=== PATIENT | male | born 1980 | race Caucasian/White ===

== ENCOUNTER 2018-08-15 10:23 | Inpatient (IN) ==
[2018-08-15] MEDS ORDERED: 0.9 % Sodium Chloride 1,000 ML IVC ONE (10:52)
--- NOTE | 2018-08-15 11:00 | Emergency Department Note ---
Disposition Clinical Impression: Hyperammonemia, Fever of unknown origin, Developmental delay, moderate, Valproic acid toxicity Disposition: Admitted As Inpatient Condition: Undetermined Time of Disposition: 12:49 Fever HPI - General Chief Complaint: ED Fever Stated Complaint: decreased intake,"fevers" Time Seen by Provider: 08/15/18 10:31 Source: other Mode of arrival: EMS Limitations: altered mental status Nursing Notes Reviewed: Yes Vital Signs Reviewed: Yes - History of Present Illness HPI Narrative: 37-year-old male with history of developmental delay, cerebral palsy on numerous psychiatric medications arrives to the emergency Department roughly 3 days of fever with a MAXIMUM TEMPERATURE of 102 degrees Fahrenheit. The fever broke last night. Being treated at home by caregivers. The patient recently had an increase in medications to include increasing valproic acid, Topamax, Haldol. The patient has had no rigidity but has been altered from his baseline. The patient does have a history of elevated ammonia in the past and has had to be admitted to the hospital secondary to elevated ammonia associated with the valproic acid level. The patient is afebrile this time no signs of tachycardia, hypotension. He is altered from his baseline. Caregiver states that he has had numerous falls. One last week where he did not strike his head. The patient is in no acute distress at this time is following intermittent commands. - Related Data Home Medications Medication Instructions Recorded Confirmed Bromocriptine [Parlodel] 2.5 mg PO DAILY 11/12/17 08/15/18 Cimetidine 200 mg PO BID 11/12/17 08/15/18 Clomipramine HCl 50 mg PO HS 11/12/17 08/15/18 Desitin (Zinc Oxide) [Desitin 1 appl TP BID 11/12/17 08/15/18 Diaper Rash 40 % Paste] Docusate Sodium [Dok] 100 mg PO BID 11/12/17 08/15/18 Haloperidol 10 mg PO BID 11/12/17 08/15/18 Hydrocortisone Valerate 1 appl TP BID 11/12/17 08/15/18 Lurasidone HCl [Latuda] 80 mg PO QPM 11/12/17 08/15/18 Zolpidem [Ambien] 5 mg PO HS 11/12/17 08/15/18 diazePAM [Valium] 5 mg PO ONCE 11/12/17 08/15/18 Lactulose [Enulose] 20 gm PO TID 05/02/18 08/15/18 Lurasidone [Latuda] 40 mg PO QAM 05/02/18 08/15/18 Acetaminophen [Non-Aspirin] 650 mg PO Q4H PRN 08/15/18 08/15/18 Benztropine [Cogentin] 1 mg PO BID 08/15/18 08/15/18 Diazepam [Diastat Acudial] 1 each RC ONCE PRN 08/15/18 08/15/18 Haloperidol Decanoate 1.5 ml IM Q2W 08/15/18 08/15/18 Ibuprofen [Motrin Ib] 400 mg PO Q4H PRN 08/15/18 08/15/18 Ketoconazole Shampoo [Nizoral 1 appl TP Q72H PRN 08/15/18 08/15/18 Shampoo] LORazepam [Ativan] 1 mg PO TID 08/15/18 08/15/18 Loperamide [Imodium] 2 mg PO AD PRN 08/15/18 08/15/18 Magnesium Hydroxide [Milk of 30 ml PO DAILY PRN 08/15/18 08/15/18 Magnesia] Medroxyprogesterone Acetate 150 mg IM Q60D 08/15/18 08/15/18 Sertraline [Zoloft] 50 mg PO HS 08/15/18 08/15/18 Sertraline [Zoloft] 100 mg PO QAM 08/15/18 08/15/18 Topiramate [Topamax] 100 mg PO QAM 08/15/18 08/15/18 Topiramate [Topamax] 200 mg PO HS 08/15/18 08/15/18 levOCARNitine [Levocarnitine] 330 mg PO TID 08/15/18 08/15/18 Previous Rx's Medication Instructions Recorded DiphenhydraMINE [Benadryl] 25 mg PO Q6HR PRN #20 capsule 11/12/17 LevETIRAcetam [Keppra] 500 mg PO BID #90 tablet 05/03/18 Allergies Allergy/AdvReac Type Severity Reaction Status Date / Time Penicillins [PCN] Allergy Hives Verified 05/12/18 19:19 All systems ED: reviewed and negative except as stated. Constitutional: Reports: fever, weakness Eyes: Denies: vision change ENT ED: Denies: dysphagia Cardiovascular: Denies: chest pain Respiratory: Denies: cough, dyspnea, sputum production Gastrointestinal: Denies: abdominal pain, nausea, vomiting Genitourinary: Denies: urgency, dysuria Integumentary: Denies: rash Neurological: Reports: confusion. Denies: headache Fever PMH - Past Medical History Medical history: Reports: GERD, hypertension, seizures, other Surgical history: Reports: no surgical history, other Psychiatric history: Reports: anxiety, depression, schizophrenia, other - Social History Smoking Status: Never smoker Alcohol use: Reports: none Drug use: Reports: none Physical Exam - General Limitations: altered mental status General appearance: in no apparent distress, other (somnolent) - Head Head exam: atraumatic, normocephalic, normal inspection - Eye Eye exam: Present: normal appearance, PERRL, EOMI - ENT ENT exam: normal exam, normal oropharynx, mucous membranes moist - Neck Neck exam: Present: normal inspection, full ROM, trachea midline. Absent: tenderness, meningismus - Chest Chest inspection: Present: normal inspection, symmetric chest wall rise - Respiratory Respiratory exam: Present: normal lung sounds bilaterally - Cardiovascular Cardiovascular exam: Present: regular rate, normal rhythm, normal heart sounds - Abdominal Exam Abdominal exam: Present: soft, Non-Tender. Absent: tenderness, distention, guarding, rebound, rigidity - Extremities Exam Extremities exam: Present: normal inspection, full ROM, normal capillary refill. Absent: tenderness, pedal edema - Expanded Neurological Exam Motor strength - LUE: 4/5 Motor strength - RUE: 4/5 Motor strength - LLE: 4/5 Motor strength - RLE: 4/5 Coma Scale Eye Opening: Spontaneous Coma Scale Motor Response: Obeys Commands Coma Scale Verbal Response: None Coma Scale Total: 11 - Skin Skin exam: Present: warm, dry, intact, normal color Course Vital Signs Temperature 97.9 F 08/15/18 10:25 Pulse Rate 93 08/15/18 10:25 Respiratory Rate 16 08/15/18 10:25 Blood Pressure 122/83 08/15/18 10:25 O2 Sat by Pulse Oximetry 98 08/15/18 10:25 Temperature 97.9 F 08/15/18 10:25 Pulse Rate 83 08/15/18 12:39 Respiratory Rate 20 08/15/18 12:39 Blood Pressure 112/70 08/15/18 12:39 O2 Sat by Pulse Oximetry 100 08/15/18 12:39 Oxygen Delivery Oxygen Delivery Room Air Fever - MDM Narrative Medical decision making narrative: Patient's workup in the emergency department demonstrates findings consistent with a hyperammonemia and no other acute process. Imaging and lab work is otherwise unremarkable. The patient will be admitted to the hospital. The patient is now awake and answering questions appropriately. Patient was accepted to the hospital by Dr. Moran. - Lab Data Lab results reviewed: Yes I reviewed the patient's lab results. Result diagrams: 08/15/18 11:08 08/15/18 11:08 Lab Results 08/15/18 08/15/18 08/15/18 Range/Units 11:08 11:08 11:08 WBC 4.9 (4.3-11.1) K/mcL RBC 4.25 (4.19-5.50) M/mcL Hgb 12.8 L (12.9-16.9) g/dL Hct 39.2 (37.5-50.1) % MCV 92.2 (83.0-100.0) fL MCH 30.1 (28.0-33.3) pg MCHC 32.7 (31.6-35.5) g/dL RDW 14.3 (11.5-14.5) % Plt Count 156 (140-400) K/mcL MPV 12.0 (9.4-12.4) fL Immature Gran % 0.8 (0-4) % Seg Neutrophils % 44.4 % Lymphocytes % 39.9 % Monocytes % 12.3 % Eosinophils % 2.2 % Basophils % 0.4 % Neutrophils # 2.2 (1.6-8.9) K/mcL Lymphocytes # 2.0 (0.6-4.6) K/mcL Monocytes # 0.6 (0.0-1.3) K/mcL Eosinophils # 0.1 (0.0-0.6) K/mcL Basophils # 0.0 (0.0-0.2) K/mcL Sodium 138 (136-145) mEq/L Potassium 4.0 (3.5-5.1) mEq/L Chloride 110 H (98-107) mEq/L Carbon Dioxide 24 (23-29) mEq/L BUN 10 (6-20) mg/dL Creatinine 0.86 (0.70-1.30) mg/dL Est GFR ( Amer) > 60 (> 60) Est GFR (Non-Af Amer) > 60 (> 60) BUN/Creatinine Ratio 12 (6-26) Glucose 90 (70-105) mg/dL Calculated Osmolality 285 (280-300) Lactic Acid 1.1 (0.5-2.2) mmol/L Calcium 9.4 (8.6-10.3) mg/dL Total Bilirubin 0.5 (0.3-1.0) mg/dL Direct Bilirubin 0.0 (0.0-0.2) mg/dL Indirect Bilirubin 0.5 (0.0-1.2) mg/dL AST 12 L (13-39) Units/L ALT 10 (7-52) Units/L Alkaline Phosphatase 46 (34-104) Units/L Ammonia (16-53) mcmol/L Serum Total Protein 7.2 (6.4-8.9) g/dL Albumin 4.0 (3.5-5.7) g/dL Globulin 3.2 (2.4-3.5) g/dL Albumin/Globulin Ratio 1.3 (1.1-2.2) Lipase 24 (11-82) Units/L Urine Color (Yellow) Urine Clarity (Clear) Urine pH (5.0-8.0) pH Units Ur Specific [place] (1.010-1.025) Urine Protein (Neg-Trace) mg/dL Urine Glucose (UA) (Normal) mg/dL Urine Ketones (Negative) mg/dL Urine Blood (Negative) Urine Nitrite (Negative) Urine Bilirubin (Negative) Urine Urobilinogen (Normal) mg/dL Ur Leukocyte Esterase (Negative) Ur Culture Indicated? (NO) Salicylates < 2.5 L (15.0-30.0) mg/dL Urine Opiates Screen (Ormkno=275) ng/mL Acetaminophen < 10 L (10-20) mcg/mL Ur Barbiturates Screen (Zokqjt=379) ng/mL Valproic Acid 90 (50-100) mcg/mL Ur Phencyclidine Scrn (Cutoff=25) ng/mL Ur Amphetamines Screen ([place]=5911) ng/mL U Benzodiazepines Scrn (Aocwwb=602) ng/mL Urine Cocaine Screen (Cutoff= 300) ng/mL U Marijuana (THC) Screen (Cutoff = 50) ng/mL Ur Drug Screen Interp Ethyl Alcohol < 10 (Less than 10) mg/dL 08/15/18 08/15/18 08/15/18 Range/Units 11:08 11:45 11:45 WBC (4.3-11.1) K/mcL RBC (4.19-5.50) M/mcL Hgb (12.9-16.9) g/dL Hct (37.5-50.1) % MCV (83.0-100.0) fL MCH (28.0-33.3) pg MCHC (31.6-35.5) g/dL RDW (11.5-14.5) % Plt Count (140-400) K/mcL MPV (9.4-12.4) fL Immature Gran % (0-4) % Seg Neutrophils % % Lymphocytes % % Monocytes % % Eosinophils % % Basophils % % Neutrophils # (1.6-8.9) K/mcL Lymphocytes # (0.6-4.6) K/mcL Monocytes # (0.0-1.3) K/mcL Eosinophils # (0.0-0.6) K/mcL Basophils # (0.0-0.2) K/mcL Sodium (136-145) mEq/L Potassium (3.5-5.1) mEq/L Chloride (98-107) mEq/L Carbon Dioxide (23-29) mEq/L BUN (6-20) mg/dL Creatinine (0.70-1.30) mg/dL Est GFR ( Amer) (> 60) Est GFR (Non-Af Amer) (> 60) BUN/Creatinine Ratio (6-26) Glucose (70-105) mg/dL Calculated Osmolality (280-300) Lactic Acid (0.5-2.2) mmol/L Calcium (8.6-10.3) mg/dL Total Bilirubin (0.3-1.0) mg/dL Direct Bilirubin (0.0-0.2) mg/dL Indirect Bilirubin (0.0-1.2) mg/dL AST (13-39) Units/L ALT (7-52) Units/L Alkaline Phosphatase (34-104) Units/L Ammonia 77 H (16-53) mcmol/L Serum Total Protein (6.4-8.9) g/dL Albumin (3.5-5.7) g/dL Globulin (2.4-3.5) g/dL Albumin/Globulin Ratio (1.1-2.2) Lipase (11-82) Units/L Urine Color Dark Yellow (Yellow) Urine Clarity Clear (Clear) Urine pH 6.0 (5.0-8.0) pH Units Ur Specific [place] 1.025 (1.010-1.025) Urine Protein Negative (Neg-Trace) mg/dL Urine Glucose (UA) Normal (Normal) mg/dL Urine Ketones Negative (Negative) mg/dL Urine Blood Negative (Negative) Urine Nitrite Negative (Negative) Urine Bilirubin Negative (Negative) Urine Urobilinogen Normal (Normal) mg/dL Ur Leukocyte Esterase Negative (Negative) Ur Culture Indicated? NO (NO) Salicylates (15.0-30.0) mg/dL Urine Opiates Screen Negative (Gpbgng=779) ng/mL Acetaminophen (10-20) mcg/mL Ur Barbiturates Screen Negative (Vwbkfn=188) ng/mL Valproic Acid (50-100) mcg/mL Ur Phencyclidine Scrn Negative (Cutoff=25) ng/mL Ur Amphetamines Screen Negative (Uosmzd=2814) ng/mL U Benzodiazepines Scrn Positive H (Hvuzhb=670) ng/mL Urine Cocaine Screen Negative (Cutoff= 300) ng/mL U Marijuana (THC) Screen Negative (Cutoff = 50) ng/mL Ur Drug Screen Interp See Below Ethyl Alcohol (Less than 10) mg/dL - Radiology Data Radiology results reviewed: Yes I reviewed the patient's radiology results. Abdomen/Pelvis CT 08/15/18 10:52 IMPRESSION: No CT evidence of an acute intra-abdominal or intrapelvic process. D/ / Mauro Perez / Muaro Perez Interpreting Provider: Mauro Perez Cervical Spine CT 08/15/18 10:52 IMPRESSION: No acute abnormality of the cervical spine. D/ / Mauro Perez / Mauro Perez Interpreting Provider: Mauro Perez Chest X-Ray 08/15/18 10:52 IMPRESSION: Suboptimal inspiration. Mild bibasilar atelectasis. D/ / Matheus Gu MD / Matheus Gu MD Interpreting Provider: Matheus Gu MD Head CT 08/15/18 10:52 IMPRESSION: 1.No acute intracranial abnormality. D/ / Dmitriy Bertrand MD / Dmitriy Bertrand MD Interpreting Provider: Dmitriy Bertrand MD - EKG Data EKG attestation: Yes I reviewed and interpreted this EKG. EKG results narrative: Heart rate 85 beats for minute. Normal sinus rhythm. No ST elevation or ST depression noted. No acute changes noted when compared to previous EKG from 05/12/2018. Attestation Statement - Attestation Attestation: I, Zack Bishop, examined this patient and my medical decision-making was reviewed with the LEATHER DRIER/PA/Advanced Practice Nurse/Resident Physician. I agree with the documented findings, disposition and treatment plan as described except to the extent set forth below. 37-year-old male presents emergency Department for evaluation of decreased by mouth intake, altered mental status and reported fever. Patient has a history of cerebral palsy and resides at a half-way. Patient is unable to give a hi story regarding his case and presentation. His caretakers are present in the emergency department who report a fever over the past few days however he does not have a fever today. They note that he has had multiple changes to his psychiatric medications over past week. Patient had a history of similar altered mental status with elevated ammonia levels in the past. No history of previous liver disease however he does take Depakote. I reviewed the EKG with the resident and agree with the interpretation. Patient does have an elevated ammonia level today. Urinalysis does not show obvious urinary tract infection. Chest x-ray had poor inspiration but does not show obvious infiltrate. Patient is afebrile in the emergency department. He does not have leukocytosis. Valproic acid level was within normal limits in the emergency department. CT of the head, neck, abdomen and pelvis did not show evidence of acute surgical pathology. Unlikely meningitis without fever in the emergency department. He has not received antipyretics within the past 12 hours. He will be admitted to the hospitalist for further care and evaluation.
[2018-08-15 11:26] LABS: Basophils % 0.4 %; Eosinophils # 0.1 K/mcL (0.0-0.6); Eosinophils % 2.2 %; Hematocrit 39.2 % (37.5-50.1); Hemoglobin 12.8 g/dL (12.9-16.9); Immature Granulocytes % 0.8 % (0-4); Lymphocytes % 39.9 %; Mean Corpuscular HGB Conc 32.7 g/dL (31.6-35.5); Mean Corpuscular Hemoglobin 30.1 pg (28.0-33.3); Mean Corpuscular Volume 92.2 fL (83.0-100.0); Monocytes # 0.6 K/mcL (0.0-1.3); Monocytes % 12.3 %; Neutrophils # 2.2 K/mcL (1.6-8.9); Platelet Count 156 K/mcL (140-400); Red Blood Count 4.25 M/mcL (4.19-5.50); Red Cell Distribution Width 14.3 % (11.5-14.5); Segmented Neutrophils % 44.4 %; White Blood Count 4.9 K/mcL (4.3-11.1)
[2018-08-15] MEDS ORDERED: Lactulose Oral Soln 20 GM/30 ML UDC PO ONE (11:44)
[2018-08-15 12:03] LABS: Bilirubin,Urine Negative (Negative); Blood,Urine Negative (Negative); Clarity,Urine Clear (Clear); Color,Urine Dark Yellow (Yellow); Glucose,Urine (UA) Normal (Normal); Ketones,Urine Negative (Negative); Leukocyte Esterase,Urine Negative (Negative); Nitrite,Urine Negative (Negative); Protein,Urine Negative (Neg-Trace); Specific Gravity,Urine 1.025 (1.010-1.025); Urobilinogen,Urine Normal (Normal)
[2018-08-15 12:12] LABS: Amphetamine Screen,Urine Negative ng/mL (Cutoff=1000); Barbiturate Screen,Urine Negative ng/mL (Cutoff=200); Benzodiazepines Screen,Urine Positive ng/mL (Cutoff=200); Cannabinoid Screen,Urine Negative ng/mL (Cutoff = 50); Cocaine Screen,Urine Negative ng/mL (Cutoff= 300); Opiate Screen,Urine Negative ng/mL (Cutoff=300); Phencyclidine Screen,Urine Negative ng/mL (Cutoff=25)
[2018-08-15 12:15] LABS: Acetaminophen < 10 mcg/mL (10-20); Alanine Aminotransferase 10 Units/L (7-52); Albumin/Globulin Ratio 1.3 (1.1-2.2); Alkaline Phosphatase 46 Units/L (34-104); Aspartate Amino Transferase 12 Units/L (13-39); BUN/Creatinine Ratio 12 (6-26); Bilirubin,Indirect 0.5 mg/dL (0.0-1.2); Bilirubin,Total 0.5 mg/dL (0.3-1.0); Blood Urea Nitrogen 10 mg/dL (6-20); Calcium 9.4 mg/dL (8.6-10.3); Carbon Dioxide 24 mEq/L (23-29); Chloride 110 mEq/L (98-107); Ethanol < 10 mg/dL (Less than 10); Globulin 3.2 g/dL (2.4-3.5); Glucose 90 mg/dL (70-105); Lipase 24 Units/L (11-82); Osmolality,Calculated 285 (280-300); Salicylate < 2.5 mg/dL (15.0-30.0); Sodium 138 mEq/L (136-145); Total Protein 7.2 g/dL (6.4-8.9); Valproate 90 mcg/mL (50-100); eGFR For African Americans > 60 (> 60); eGFR For Non-African Americans > 60 (> 60)
--- NOTE | 2018-08-15 14:56 | Internal Med History&Physical ---
Date of Encounter: 08/15/18 Time of Encounter: 14:52 Internal Medicine - H&P: HPI Chief complaint: change mental status History of present illness: 37-year-old male with history of developmental delay, schizoaffective disorder, MRDDl, obesity who presented with a history of 3 days of fever that was reported by the caregiver associated with underwent a stent as that was prescribed by the caregiver as been not at his baseline.. The reported the patient currently have change of medication including increasing the dose of valproic acid, Topamax as well to Haldol. Reviewing the patient record indicated that he was admitted in May 2018 and was treated for recurrent seizure-like activity, elevated ammonia level 2/2 the use of Depakote which was D/C and Keppra 500 mg twice a day for empirical seizure treatment , a neurological follow-up in 2-3 weeks after discharge was recommended. It was also reported that the patient has issues with frequent falls. CT scan of the head was obtained and revealed no significant abnormalities, when reviewing the patient's medications there was a concern about possibility of polypharmacy, I spoke with neurology who recomm ended to continue antiseizure meds and obtain levels. All other medication will be held for now until patient was evaluated by psychiatry. The patient temperature during his ER stay was within normal limits, there is no evidence of infection such as tachycardia and hypotension. The patient ammonia level was noted to be elevated however it is within his baseline from prior admission and he is is a home meds included lactulose on daily basis. The patient will be admitted for further evaluation and management. Past Med Surg Social Fam HX - Past Medical History Medical history: GERD, hypertension, seizures, other Additional medical history: MRDD, autism, EPS, schizoaffective disorder, OCD, psoriasis Psychiatric history: anxiety, depression, schizophrenia, other - Past Surgical History Surgical History: no surgical history, other Additional surgical history: heart cath - Social History Smoking Status: Never smoker Smokeless Tobacco Status: No Alcohol use: none Drug use: none Internal Medicine - H&P: Meds Bromocriptine [Parlodel] 2.5 mg PO DAILY 11/12/17 [History] Cimetidine 200 mg PO BID 11/12/17 [History] Clomipramine HCl 50 mg PO HS 11/12/17 [History] Desitin (Zinc Oxide) [Desitin Diaper Rash 40 % Paste] 1 appl TP BID 11/12/17 [History] DiphenhydraMINE [Benadryl] 25 mg PO Q6HR PRN #20 capsule 11/12/17 [Rx] Docusate Sodium [Dok] 100 mg PO BID 11/12/17 [History] Haloperidol 10 mg PO BID 11/12/17 [History] Hydrocortisone Valerate 1 appl TP BID 11/12/17 [History] Lurasidone HCl [Latuda] 80 mg PO QPM 11/12/17 [History] Zolpidem [Ambien] 5 mg PO HS 11/12/17 [History] diazePAM [Valium] 5 mg PO ONCE 11/12/17 [History] Lactulose [Enulose] 20 gm PO TID 05/02/18 [History] Lurasidone [Latuda] 40 mg PO QAM 05/02/18 [History] LevETIRAcetam [Keppra] 500 mg PO BID #90 tablet 05/03/18 [Rx] Acetaminophen [Non-Aspirin] 650 mg PO Q4H PRN 08/15/18 [History] Benztropine [Cogentin] 1 mg PO BID 08/15/18 [History] Diazepam [Diastat Acudial] 1 each RC ONCE PRN 08/15/18 [History] Haloperidol Decanoate 1.5 ml IM Q2W 08/15/18 [History] Ibuprofen [Motrin Ib] 400 mg PO Q4H PRN 08/15/18 [History] Ketoconazole Shampoo [Nizoral Shampoo] 1 appl TP Q72H PRN 08/15/18 [History] LORazepam [Ativan] 1 mg PO TID 08/15/18 [History] Loperamide [Imodium] 2 mg PO AD PRN 08/15/18 [History] Magnesium Hydroxide [Milk of Magnesia] 30 ml PO DAILY PRN 08/15/18 [History] Medroxyprogesterone Acetate 150 mg IM Q60D 08/15/18 [History] Sertraline [Zoloft] 50 mg PO HS 08/15/18 [History] Sertraline [Zoloft] 100 mg PO QAM 08/15/18 [History] Topiramate [Topamax] 100 mg PO QAM 08/15/18 [History] Topiramate [Topamax] 200 mg PO HS 08/15/18 [History] levOCARNitine [Levocarnitine] 330 mg PO TID 08/15/18 [History] Allergy/AdvReac Type Severity Reaction Status Date / Time Penicillins [PCN] Allergy Hives Verified 05/12/18 19:19 All Systems PM: A 10-system review of systems was performed and is negative for pertinent findings except as documented above in the HPI. - Constitutional Vitals: Temp Pulse Resp BP Pulse Ox 97.9 F 82 16 105/69 100 08/15/18 10:25 08/15/18 14:17 08/15/18 14:17 08/15/18 14:17 08/15/18 14:17 General appearance: Present: A&O X 0 Exam: ` - Head Head exam: Present: atraumatic, normocephalic - Neck Neck exam general surgery: Present: supple, trachea midline. Absent: lymphadenopathy - Respiratory Respiratory exam: Present: CTAB. Absent: accessory muscle use, rales, rhonchi, wheezes - Cardiovascular Cardiovascular exam: Present: RRR, +S1, +S2. Absent: diastolic murmur, gallop, rubs, systolic murmur Internal Med - H&P Results - Labs CBC & Chem 7: 08/16/18 04:59 08/16/18 04:59 Labs: Short CBC 08/15/18 Range/Units 11:08 WBC 4.9 (4.3-11.1) K/mcL Hgb 12.8 L (12.9-16.9) g/dL Hct 39.2 (37.5-50.1) % Plt Count 156 (140-400) K/mcL Neutrophils # 2.2 (1.6-8.9) K/mcL BMP 08/15/18 11:08 Sodium 138 Potassium 4.0 Chloride 110 H Carbon Dioxide 24 BUN 10 Creatinine 0.86 Glucose 90 Calcium 9.4 Liver Function 08/15/18 Range/Units 11:08 Total Bilirubin 0.5 (0.3-1.0) mg/dL Direct Bilirubin 0.0 (0.0-0.2) mg/dL AST 12 L (13-39) Units/L ALT 10 (7-52) Units/L Alkaline Phosphatase 46 (34-104) Units/L Albumin 4.0 (3.5-5.7) g/dL Urine 08/15/18 Range/Units 11:45 Urine Color Dark Yellow (Yellow) Urine Clarity Clear (Clear) Urine pH 6.0 (5.0-8.0) pH Units Ur Specific [place] 1.025 (1.010-1.025) Urine Protein Negative (Neg-Trace) mg/dL Urine Glucose (UA) Normal (Normal) mg/dL - Impressions ITS Impressions Abdomen/Pelvis CT 08/15/18 10:52 IMPRESSION: No CT evidence of an acute intra-abdominal or intrapelvic process. D/ / Mauro Perez / Mauro Perez Interpreting Provider: Mauro Perez Cervical Spine CT 08/15/18 10:52 IMPRESSION: No acute abnormality of the cervical spine. D/ / Mauro Perez / Mauro Perez Interpreting Provider: Mauro Perez Chest X-Ray 08/15/18 10:52 IMPRESSION: Suboptimal inspiration. Mild bibasilar atelectasis. D/ / Matheus Gu MD / Matheus uG MD Interpreting Provider: Matheus Gu MD Head CT 08/15/18 10:52 IMPRESSION: 1.No acute intracranial abnormality. D/ / Dmitriy Bertrand MD / Dmitriy Bertrand MD Interpreting Provider: Dmitriy Bertrand MD - Assessment and Plan (1) Change in mental state Current Visit: Yes Status: Acute Assessment and plan: The caregiver reported history of fever however patient remained afebrile in ER ,no identified source of infection, no Leukocytosis , no tachycardia or hypotention. Chest x-ray revealed no evidence of pneumonia and urinalysis is not suggestive of UTI and underlying infectious process is less likely. As discussed with psych and neurology, several changes have been made recently to the patient medications including adding Haldol, I am concerned about the possibility that the patient has been overmedicated which led to the current altered level of consciousness. Both psychiatry and neurolog were consulted. Qualifiers: Qualified Code(s): R41.82 - Altered mental status, unspecified (2) Hyperammonemia Current Visit: Yes Status: Acute Assessment and plan: The patient has history of chronic elevated ammonia level, the current level is around his baseline, elevated ammonia level was attributed to Depakot, it was recommended by neurology to discontinue Depakote unless if needed for mood sta bilization, however still listed on home medication list, We will continue home lactulose. I spoke with neurology and they recommended to continue current antiseizure measurement and obtain levels. I also spoke to psych who agreed to see the patient in consult to review his current regimen. (3) Seizure-like activity Current Visit: No Status: Acute Assessment and plan: we will continue current antiseizure regimen as discussed with neurology and obtain levels. Neurology will see patient in consult in a.m. (4) Developmental delay, moderate Current Visit: Yes Status: Chronic (5) Schizoaffective disorder Current Visit: No Status: Chronic Assessment and plan: We consulted psych for further evaluation and management Qualifiers: Qualified Code(s): F25.9 - Schizoaffective disorder, unspecified (6) At risk for polypharmacy Current Visit: Yes Status: Acute Assessment and plan: As discussed with psych and neurology, several changes have been made recently to the patient medications including adding Haldol, I am concerned about the possibility that the patient has been overmedicated which led to the current altered level of consciousness. Both psychiatry and neurolog were consulted. (7) DVT prophylaxis Current Visit: No Status: Acute Assessment and plan: We Will place SCDs. - Time Spent With Patient Total time spent is greater than 50% in coordination of care (as documented) at patient's floor/unit and/or counseling patient:
[2018-08-15] MEDS ORDERED: Ondansetron 4 MG/2 ML VIAL IVP PRN (15:52)
[2018-08-15] MEDS ORDERED: Naloxone 0.4 MG/ML INJ IVP PRN (15:52)
[2018-08-15] MEDS: 0.9 % Sodium Chloride 1,000 ML IVC SCH (17:55)
[2018-08-15] MEDS ORDERED: Dextrose Gel 15 GM/37.5 ML TUBE PO PRN ×2 (18:37)
[2018-08-15] MEDS ORDERED: D5% in Water 1,000 ML IVC PRN (18:37)
[2018-08-15] MEDS ORDERED: *HR* Dextrose 50 % in Water (Syg) 50 ML SYRINGE IVP PRN (18:37)
[2018-08-15] MEDS: levETIRAcetam 250 MG TABLET PO SCH (21:26)
[2018-08-15] MEDS: Lactulose Oral Soln 20 GM/30 ML UDC PO SCH (21:26)
[2018-08-15] MEDS: Famotidine 20 MG TABLET PO SCH (21:27)
[2018-08-15] MEDS: Topiramate 100 MG TABLET PO SCH (21:27)
[2018-08-15] MEDS: LEVOCARNITINE 330 MG PO SCH (21:27)
[2018-08-16] MEDS: 0.9 % Sodium Chloride 1,000 ML IVC SCH (02:04)
[2018-08-16 05:57] LABS: Basophils % 0.2 %; Eosinophils # 0.1 K/mcL (0.0-0.6); Hematocrit 35.3 % (37.5-50.1); Immature Granulocytes % 0.6 % (0-4); Lymphocytes # 1.8 K/mcL (0.6-4.6); Lymphocytes % 35.6 %; Mean Corpuscular HGB Conc 31.4 g/dL (31.6-35.5); Mean Corpuscular Hemoglobin 29.7 pg (28.0-33.3); Mean Corpuscular Volume 94.4 fL (83.0-100.0); Mean Platelet Volume 12.3 fL (9.4-12.4); Monocytes # 0.7 K/mcL (0.0-1.3); Monocytes % 14.6 %; Neutrophils # 2.4 K/mcL (1.6-8.9); Platelet Count 136 K/mcL (140-400); Red Blood Count 3.74 M/mcL (4.19-5.50); Red Cell Distribution Width 14.4 % (11.5-14.5); White Blood Count 5.1 K/mcL (4.3-11.1)
[2018-08-16 05:58] LABS: Hemoglobin 11.1 g/dL (12.9-16.9)
[2018-08-16 06:03] LABS: INR 1.2; Prothrombin Time 13.3 Seconds (9.4-12.1)
[2018-08-16 06:05] LABS: Activated Partial Thrombo Time 34.4 Seconds (26.0-36.0)
[2018-08-16 06:16] LABS: Alanine Aminotransferase 9 Units/L (7-52); Albumin 3.6 g/dL (3.5-5.7); Albumin/Globulin Ratio 1.3 (1.1-2.2); Alkaline Phosphatase 49 Units/L (34-104); Aspartate Amino Transferase 10 Units/L (13-39); BUN/Creatinine Ratio 14 (6-26); Bilirubin,Total 0.4 mg/dL (0.3-1.0); Blood Urea Nitrogen 11 mg/dL (6-20); Calcium 8.8 mg/dL (8.6-10.3); Carbon Dioxide 23 mEq/L (23-29); Chloride 110 mEq/L (98-107); Chol/HDL Ratio 9.6 (0-4.9); Cholesterol 135 mg/dL (< 200); Globulin 2.7 g/dL (2.4-3.5); Glucose 87 mg/dL (70-105); HDL Cholesterol 14 mg/dL (40-59); LDL Cholesterol,Calculated 79 mg/dL (0-99); Magnesium 2.1 mg/dL (1.6-2.6); Osmolality,Calculated 291 (280-300); Phosphorous 2.9 mg/dL (2.7-4.5); Potassium 3.8 mEq/L (3.5-5.1); Sodium 141 mEq/L (136-145); Total Protein 6.3 g/dL (6.4-8.9); Triglycerides 209 mg/dL (< 150); eGFR For African Americans > 60 (> 60); eGFR For Non-African Americans > 60 (> 60)
[2018-08-16] MEDS ORDERED: D5% in Water 1,000 ML IVC PRN (06:26)
[2018-08-16] MEDS ORDERED: MOM Conc 10 ML UD.LIQ PO PRN (08:09)
[2018-08-16] MEDS ORDERED: *HR* LORazepam 2 MG/ML VIAL IVP PRN (08:11)
[2018-08-16] MEDS ORDERED: MEDROXYPROGESTERONE ACETATE 150 MG IM SCH (08:15)
--- NOTE | 2018-08-16 08:36 | Consult Note ---
Date of Encounter: 08/16/18 Time of Encounter: 07:30 Assessment & Recommendation (1) Schizoaffective disorder Current visit: No Status: Chronic Assessment & Recommendation: I reviewed his past admissions. Most recently in May he was on the same dose of latuda, and oral Haldol, Valium, Ambien, Cogentin, clomipramine, and medroxyprogesterone. At that time his Zoloft was 100 twice a day where it is now 100 at the morning and 50 at night and his Topamax was 100 twice a day where it is now 100 in the morning and 200 at night. Additionally he currently has Ativan 1 mg 3 times a day listed which was not listed in May. During his May admission he was diagnosed with valproic acid toxicity and Depakote was discontinued. I would recommend this again be discontinued as he is on several other medications for his seizure disorder including topiramate and Keppra. This should help with the ammonia level. Additionally given that it appears his Haldol decanoate was increased from 100 mg to 150 mg and he gets this at a frequency of every 2 weeks, I would recommend reducing his oral Haldol to 5 mg twice a day. I would keep his other psychiatric medications consistent. He is on an atypically high number of psychotropic medications however it appears that he has been very treatment refractory. I suspect he has had some sexual aggression in the past given the medroxyprogesterone which is sometimes used in these cases and given that aggression is noted in his past records at [facility]. He does not have rigidity which makes me less concerned about neuroleptic malignant syndrome. Additionally his Zoloft has been reduced which also would make me less concern for serotonin syndrome. He does not meet criteria for inpatient hospitalization at this time as he is denying suicidal or homicidal thoughts ideations or plans and he is living in a supportive environment that can meet his care needs once he is medically stable. Psychiatry will sign off unless there are additional questions. Qualifiers: Qualified Code(s): F25.9 - Schizoaffective disorder, unspecified History of Present Illness Patient: new to practice Requesting Physician: Sandy Arrieta Reason for consult: altered mental status History of present illness: Mr. Guaman is a 37 year old male who according to the chart has a history of developmental delay, schizoaffective disorder, MRDDl, obesity who presented with a history of 3 days of fever that was reported by the caregiver associated with underwent a stent as that was prescribed by the caregiver as been not at his baseline.. The reported the patient currently have change of medication including increasing the dose of valproic acid, Topamax as well to Haldol. Reviewing the patient record indicated that he was admitted in May 2018 and was treated for recurrent seizure-like activity, elevated ammonia level 2/2 the use of Depakote which was D/C and Keppra 500 mg twice a day for empirical seizure treatment , a neurological follow-up in 2-3 weeks after discharge was recommended. It was also reported that the patient has issues with frequent falls. CT scan of the head was obtained and revealed no significant abnormalities, when reviewing the patient's medications there was a concern about possibility of polypharmacy, hospitalist spoke with neurology who recommended to continue antiseizure meds and obtain levels. Psychiatry was consulted to review polypharmacy. This morning the patient is unable to provide much information. He cannot accurately tell me the date or where he is. He generally just stares at me without responding to most questions. He was however cooperative and not agitated. He was alone in the room. CC: Sandy Arrieta Past Med Surg Social Fam HX - Past Medical History Medical history: GERD, hypertension, seizures, other - Past Psychiatric History Psychiatric history: Reports: previous psychiatric hospitalization Past psychiatric history details: He has a long history of schizoaffective disorder and developmental disability. Family psychiatric history: Unknown Family History of Suicide: Unknown - Past Surgical History Surgical History: no surgical history, other - Social History Smoking Status: Never smoker Smokeless Tobacco Status: No Alcohol use: none Drug use: none Medications & Allergies Bromocriptine [Parlodel] 2.5 mg PO DAILY 11/12/17 [History] Cimetidine 200 mg PO BID 11/12/17 [History] Clomipramine HCl 50 mg PO HS 11/12/17 [History] Desitin (Zinc Oxide) [Desitin Diaper Rash 40 % Paste] 1 appl TP BID 11/12/17 [History] DiphenhydraMINE [Benadryl] 25 mg PO Q6HR PRN #20 capsule 11/12/17 [Rx] Docusate Sodium [Dok] 100 mg PO BID 11/12/17 [History] Haloperidol 10 mg PO BID 11/12/17 [History] Hydrocortisone Valerate 1 appl TP BID 11/12/17 [History] Lurasidone HCl [Latuda] 80 mg PO QPM 11/12/17 [History] Zolpidem [Ambien] 5 mg PO HS 11/12/17 [History] diazePAM [Valium] 5 mg PO ONCE 11/12/17 [History] Lactulose [Enulose] 20 gm PO TID 05/02/18 [History] Lurasidone [Latuda] 40 mg PO QAM 05/02/18 [History] LevETIRAcetam [Keppra] 500 mg PO BID #90 tablet 05/03/18 [Rx] Acetaminophen [Non-Aspirin] 650 mg PO Q4H PRN 08/15/18 [History] Benztropine [Cogentin] 1 mg PO BID 08/15/18 [History] Diazepam [Diastat Acudial] 1 each RC ONCE PRN 08/15/18 [History] Haloperidol Decanoate 1.5 ml IM Q2W 08/15/18 [History] Ibuprofen [Motrin Ib] 400 mg PO Q4H PRN 08/15/18 [History] Ketoconazole Shampoo [Nizoral Shampoo] 1 appl TP Q72H PRN 08/15/18 [History] LORazepam [Ativan] 1 mg PO TID 08/15/18 [History] Loperamide [Imodium] 2 mg PO AD PRN 08/15/18 [History] Magnesium Hydroxide [Milk of Magnesia] 30 ml PO DAILY PRN 08/15/18 [History] Medroxyprogesterone Acetate 150 mg IM Q60D 08/15/18 [History] Sertraline [Zoloft] 50 mg PO HS 08/15/18 [History] Sertraline [Zoloft] 100 mg PO QAM 08/15/18 [History] Topiramate [Topamax] 100 mg PO QAM 08/15/18 [History] Topiramate [Topamax] 200 mg PO HS 08/15/18 [History] levOCARNitine [Levocarnitine] 330 mg PO TID 08/15/18 [History] Allergy/AdvReac Type Severity Reaction Status Date / Time Penicillins [PCN] Allergy Hives Verified 05/12/18 19:19 Review of Systems ROS limited: due to patient condition Constitutional: Reports: fever Eyes: Denies: eye pain Ears, Nose, Throat: Denies: ear pain Cardiovascular: Denies: chest pain Respiratory: Denies: cough Gastrointestinal: Denies: abdominal pain Genitourinary male: Denies: urgency Musculoskeletal: Denies: back pain Integumentary: Denies: rash Neurological: Reports: confusion Psychiatric: Reports: confusion. Denies: suicidal ideation, homicidal ideation, auditory hallucinations, visual hallucinations Endocrine: Denies: heat or cold intolerance Hematologic/Lymphatic: Denies: easy bleeding Allergic/Immunologic: Denies: facial swelling Psychiatry Exam - Constitutional Vitals: Temp Pulse Resp BP Pulse Ox 97.6 F 94 20 119/77 93 08/16/18 08:17 08/16/18 08:17 08/16/18 08:17 08/16/18 08:17 08/16/18 08:17 General appearance: disheveled, obese - Musculoskeletal Gait: other (In bed) Station: relaxed Strength & Tone: normal for patient - Psychiatric Patient Orientation: Yes Person Level of alertness: Alert Behavior: withdrawn Psychomotor activity: Slowed Eye Contact: Minimal Contact Mood Description: Euthymic/stable Patient description of mood: Okay Affect description: flat Speech Volume: No variation in volume Speech pattern: impoverished Language & Vocabulary: limited Thought Process: Thought Blocking Thought Content: No Suicidal ideation, No Homicidal ideation Perceptual Disturbances: No Auditory hallucinations, No Visual hallucinations Attention Span Ability: Unable to Focus Memory Description: Immediate Impaired, Recent Impaired, Remote Impaired Patient Reliability: Not Reliable Historian Fund of knowledge: Yes above average Intelligence Estimate: Below Average Judgment: Poor Insight: None Results - Drug Levels and Toxicology Drug Levels and Toxicology: Drug Levels and Toxicity 08/15/18 08/15/18 08/15/18 11:08 11:08 11:08 WBC 4.9 RBC 4.25 Hgb 12.8 L Hct 39.2 MCV 92.2 MCH 30.1 MCHC 32.7 RDW 14.3 Plt Count 156 MPV 12.0 Immature Gran % 0.8 Seg Neutrophils % 44.4 Lymphocytes % 39.9 Monocytes % 12.3 Eosinophils % 2.2 Basophils % 0.4 Neutrophils # 2.2 Lymphocytes # 2.0 Monocytes # 0.6 Eosinophils # 0.1 Basophils # 0.0 PT INR APTT Sodium 138 Potassium 4.0 Chloride 110 H Carbon Dioxide 24 BUN 10 Creatinine 0.86 Est GFR ( Amer) > 60 Est GFR (Non-Af Amer) > 60 BUN/Creatinine Ratio 12 Glucose 90 POC Glucose Calculated Osmolality 285 Lactic Acid 1.1 Calcium 9.4 Phosphorus Magnesium Total Bilirubin 0.5 Direct Bilirubin 0.0 Indirect Bilirubin 0.5 AST 12 L ALT 10 Alkaline Phosphatase 46 Ammonia Serum Total Protein 7.2 Albumin 4.0 Globulin 3.2 Albumin/Globulin Ratio 1.3 Triglycerides Cholesterol LDL Cholesterol, Calc VLDL Cholesterol, Calc HDL Cholesterol Cholesterol/HDL Ratio Lipase 24 Urine Color Urine Clarity Urine pH Ur Specific [place] Urine Protein Urine Glucose (UA) Urine Ketones Urine Blood Urine Nitrite Urine Bilirubin Urine Urobilinogen Ur Leukocyte Esterase Ur Culture Indicated? Salicylates < 2.5 L Urine Opiates Screen Acetaminophen < 10 L Ur Barbiturates Screen Valproic Acid 90 Levetiracetam Ur Phencyclidine Scrn Ur Amphetamines Screen U Benzodiazepines Scrn Urine Cocaine Screen U Marijuana (THC) Screen Ur Drug Screen Interp Ethyl Alcohol < 10 08/15/18 08/15/18 08/15/18 11:08 11:45 11:45 WBC RBC Hgb Hct MCV MCH MCHC RDW Plt Count MPV Immature Gran % Seg Neutrophils % Lymphocytes % Monocytes % Eosinophils % Basophils % Neutrophils # Lymphocytes # Monocytes # Eosinophils # Basophils # PT INR APTT Sodium Potassium Chloride Carbon Dioxide BUN Creatinine Est GFR ( Amer) Est GFR (Non-Af Amer) BUN/Creatinine Ratio Glucose POC Glucose Calculated Osmolality Lactic Acid Calcium Phosphorus Magnesium Total Bilirubin Direct Bilirubin Indirect Bilirubin AST ALT Alkaline Phosphatase Ammonia 77 H Serum Total Protein Albumin Globulin Albumin/Globulin Ratio Triglycerides Cholesterol LDL Cholesterol, Calc VLDL Cholesterol, Calc HDL Cholesterol Cholesterol/HDL Ratio Lipase Urine Color Dark Yellow Urine Clarity Clear Urine pH 6.0 Ur Specific [place] 1.025 Urine Protein Negative Urine Glucose (UA) Normal Urine Ketones Negative Urine Blood Negative Urine Nitrite Negative Urine Bilirubin Negative Urine Urobilinogen Normal Ur Leukocyte Esterase Negative Ur Culture Indicated? NO Salicylates Urine Opiates Screen Negative Acetaminophen Ur Barbiturates Screen Negative Valproic Acid Levetiracetam Ur Phencyclidine Scrn Negative Ur Amphetamines Screen Negative U Benzodiazepines Scrn Positive H Urine Cocaine Screen Negative U Marijuana (THC) Screen Negative Ur Drug Screen Interp See Below Ethyl Alcohol 06/08/15/18 08/16/18 16:43 17:59 04:59 WBC 5.1 RBC 3.74 L Hgb 11.1 L D Hct 35.3 L MCV 94.4 MCH 29.7 MCHC 31.4 L RDW 14.4 Plt Count 136 L MPV 12.3 Immature Gran % 0.6 Seg Neutrophils % 47.0 Lymphocytes % 35.6 Monocytes % 14.6 Eosinophils % 2.0 Basophils % 0.2 Neutrophils # 2.4 Lymphocytes # 1.8 Monocytes # 0.7 Eosinophils # 0.1 Basophils # 0.0 PT INR APTT Sodium Potassium Chloride Carbon Dioxide BUN Creatinine Est GFR ( Amer) Est GFR (Non-Af Amer) BUN/Creatinine Ratio Glucose POC Glucose 63 L Calculated Osmolality Lactic Acid Calcium Phosphorus Magnesium Total Bilirubin Direct Bilirubin Indirect Bilirubin AST ALT Alkaline Phosphatase Ammonia Serum Total Protein Albumin Globulin Albumin/Globulin Ratio Triglycerides Cholesterol LDL Cholesterol, Calc VLDL Cholesterol, Calc HDL Cholesterol Cholesterol/HDL Ratio Lipase Urine Color Urine Clarity Urine pH Ur Specific [place] Urine Protein Urine Glucose (UA) Urine Ketones Urine Blood Urine Nitrite Urine Bilirubin Urine Urobilinogen Ur Leukocyte Esterase Ur Culture Indicated? Salicylates Urine Opiates Screen Acetaminophen Ur Barbiturates Screen Valproic Acid Levetiracetam 15 Ur Phencyclidine Scrn Ur Amphetamines Screen U Benzodiazepines Scrn Urine Cocaine Screen U Marijuana (THC) Screen Ur Drug Screen Interp Ethyl Alcohol 08/16/18 08/16/18 08/16/18 04:59 04:59 07:01 WBC RBC Hgb Hct MCV MCH MCHC RDW Plt Count MPV Immature Gran % Seg Neutrophils % Lymphocytes % Monocytes % Eosinophils % Basophils % Neutrophils # Lymphocytes # Monocytes # Eosinophils # Basophils # PT 13.3 H INR 1.2 APTT 34.4 Sodium 141 Potassium 3.8 Chloride 110 H Carbon Dioxide 23 BUN 11 Creatinine 0.76 Est GFR ( Amer) > 60 Est GFR (Non-Af Amer) > 60 BUN/Creatinine Ratio 14 Glucose 87 POC Glucose Calculated Osmolality 291 Lactic Acid Calcium 8.8 Phosphorus 2.9 Magnesium 2.1 Total Bilirubin 0.4 Direct Bilirubin Indirect Bilirubin AST 10 L ALT 9 Alkaline Phosphatase 49 Ammonia 77 H Serum Total Protein 6.3 L Albumin 3.6 Globulin 2.7 Albumin/Globulin Ratio 1.3 Triglycerides 209 H Cholesterol 135 LDL Cholesterol, Calc 79 VLDL Cholesterol, Calc 42 H HDL Cholesterol 14 L Cholesterol/HDL Ratio 9.6 H Lipase Urine Color Urine Clarity Urine pH Ur Specific [place] Urine Protein Urine Glucose (UA) Urine Ketones Urine Blood Urine Nitrite Urine Bilirubin Urine Urobilinogen Ur Leukocyte Esterase Ur Culture Indicated? Salicylates Urine Opiates Screen Acetaminophen Ur Barbiturates Screen Valproic Acid Levetiracetam Ur Phencyclidine Scrn Ur Amphetamines Screen U Benzodiazepines Scrn Urine Cocaine Screen U Marijuana (THC) Screen Ur Drug Screen Interp Ethyl Alcohol - Labs Labs: Laboratory Last Values WBC 5.1 K/mcL (4.3-11.1) 08/16/18 04:59 RBC 3.74 M/mcL (4.19-5.50) L 08/16/18 04:59 Hgb 11.1 g/dL (12.9-16.9) L D 08/16/18 04:59 Hct 35.3 % (37.5-50.1) L 08/16/18 04:59 MCV 94.4 fL (83.0-100.0) 08/16/18 04:59 MCH 29.7 pg (28.0-33.3) 08/16/18 04:59 MCHC 31.4 g/dL (31.6-35.5) L 08/16/18 04:59 RDW 14.4 % (11.5-14.5) 08/16/18 04:59 Plt Count 136 K/mcL (140-400) L 08/16/18 04:59 MPV 12.3 fL (9.4-12.4) 08/16/18 04:59 Immature Gran % 0.6 % (0-4) 08/16/18 04:59 Seg Neutrophils % 47.0 % 08/16/18 04:59 35.6 % 08/16/18 04:59 14.6 % 08/16/18 04:59 2.0 % 08/16/18 04:59 0.2 % 08/16/18 04:59 2.4 K/mcL (1.6-8.9) 08/16/18 04:59 1.8 K/mcL (0.6-4.6) 08/16/18 04:59 0.7 K/mcL (0.0-1.3) 08/16/18 04:59 0.1 K/mcL (0.0-0.6) 08/16/18 04:59 0.0 K/mcL (0.0-0.2) 08/16/18 04:59 PT 13.3 Seconds (9.4-12.1) H 08/16/18 04:59 INR 1.2 08/16/18 04:59 APTT 34.4 Seconds (26.0-36.0) 08/16/18 04:59 Sodium 141 mEq/L (136-145) 08/16/18 04:59 Potassium 3.8 mEq/L (3.5-5.1) 08/16/18 04:59 Chloride 110 mEq/L (98-107) H 08/16/18 04:59 Carbon Dioxide 23 mEq/L (23-29) 08/16/18 04:59 BUN 11 mg/dL (6-20) 08/16/18 04:59 0.76 mg/dL (0.70-1.30) 08/16/18 04:59 Est GFR ( Amer) > 60 (> 60) 08/16/18 04:59 Est GFR (Non-Af Amer) > 60 (> 60) 08/16/18 04:59 14 (6-26) 08/16/18 04:59 Glucose 87 mg/dL (70-105) 08/16/18 04:59 POC Glucose 63 mg/dL (70-99) L 08/15/18 17:59 291 (280-300) 08/16/18 04:59 Lactic Acid 1.1 mmol/L (0.5-2.2) 08/15/18 11:08 Calcium 8.8 mg/dL (8.6-10.3) 08/16/18 04:59 Phosphorus 2.9 mg/dL (2.7-4.5) 08/16/18 04:59 Magnesium 2.1 mg/dL (1.6-2.6) 08/16/18 04:59 0.4 mg/dL (0.3-1.0) 08/16/18 04:59 0.0 mg/dL (0.0-0.2) 08/15/18 11:08 0.5 mg/dL (0.0-1.2) 08/15/18 11:08 AST 10 Units/L (13-39) L 08/16/18 04:59 ALT 9 Units/L (7-52) 08/16/18 04:59 49 Units/L (34-104) 08/16/18 04:59 77 mcmol/L (16-53) H 08/16/18 07:01 6.3 g/dL (6.4-8.9) L 08/16/18 04:59 3.6 g/dL (3.5-5.7) 08/16/18 04:59 2.7 g/dL (2.4-3.5) 08/16/18 04:59 1.3 (1.1-2.2) 08/16/18 04:59 Triglycerides 209 mg/dL (< 150) H 08/16/18 04:59 Cholesterol 135 mg/dL (< 200) 08/16/18 04:59 LDL Cholesterol, Calc 79 mg/dL (0-99) 08/16/18 04:59 VLDL Cholesterol, Calc 42 mg/dL (< 31) H 08/16/18 04:59 14 mg/dL (40-59) L 08/16/18 04:59 9.6 (0-4.9) H 08/16/18 04:59 24 Units/L (11-82) 08/15/18 11:08 Dark Yellow (Yellow) 08/15/18 11:45 Clear (Clear) 08/15/18 11:45 6.0 pH Units (5.0-8.0) 08/15/18 11:45 Ur Specific [place] 1.025 (1.010-1.025) 08/15/18 11:45 Negative mg/dL (Neg-Trace) 08/15/18 11:45 Normal mg/dL (Normal) 08/15/18 11:45 Negative mg/dL (Negative) 08/15/18 11:45 Negative (Negative) 08/15/18 11:45 Negative (Negative) 08/15/18 11:45 Negative (Negative) 08/15/18 11:45 Normal mg/dL (Normal) 08/15/18 11:45 Ur Leukocyte Esterase Negative (Negative) 08/15/18 11:45 Ur Culture Indicated? NO (NO) 08/15/18 11:45 Salicylates < 2.5 mg/dL (15.0-30.0) L 08/15/18 11:08 Negative ng/mL (Mxookd=052) 08/15/18 11:45 Acetaminophen < 10 mcg/mL (10-20) L 08/15/18 11:08 Ur Barbiturates Screen Negative ng/mL (Tlujlb=495) 08/15/18 11:45 Valproic Acid 90 mcg/mL (50-100) 08/15/18 11:08 Levetiracetam 15 mcg/mL (6-46) 08/15/18 16:43 Ur Phencyclidine Scrn Negative ng/mL (Cutoff=25) 08/15/18 11:45 Ur Amphetamines Screen Negative ng/mL (Xlsydi=8368) 08/15/18 11:45 U Benzodiazepines Scrn Positive ng/mL (Lcxiwy=741) H 08/15/18 11:45 Negative ng/mL (Cutoff= 300) 08/15/18 11:45 U Marijuana (THC) Screen Negative ng/mL (Cutoff = 50) 08/15/18 11:45 Ur Drug Screen Interp See Below 08/15/18 11:45 Ethyl Alcohol < 10 mg/dL (Less than 10) 08/15/18 11:08 - Impressions Impressions Abdomen/Pelvis CT 08/15/18 10:52 IMPRESSION: No CT evidence of an acute intra-abdominal or intrapelvic process. D/ / Mauro Perez / Mauro Perez Interpreting Provider: Mauro Perez Cervical Spine CT 08/15/18 10:52 IMPRESSION: No acute abnormality of the cervical spine. D/ / Mauro Perez / Mauro Perez Interpreting Provider: Mauro Perez Chest X-Ray 08/15/18 10:52 IMPRESSION: Suboptimal inspiration. Mild bibasilar atelectasis. D/ / Matheus Gu MD / Matheus Gu MD Interpreting Provider: Matheus Gu MD Head CT 08/15/18 10:52 IMPRESSION: 1.No acute intracranial abnormality. D/ / Dmitriy Bertrand MD / Dmitriy Bertrand MD Interpreting Provider: Dmitriy Bertrand MD Consult Discharge Plan - Plan Referrals: Brenna Arthur MD [Primary Care Provider] -
--- NOTE | 2018-08-16 08:58 | Internal Med Progress Note ---
<Sandy Arrieta - Last Filed: 08/16/18 13:38> Hospitalist Progress Note - Encounter Date of Encounter: 08/16/18 - Exam Vitals: Temp Pulse Resp BP Pulse Ox 97.7 F 80 18 119/76 94 08/16/18 12:04 08/16/18 12:04 08/16/18 12:04 08/16/18 12:04 08/16/18 12:04 - Assessment and Plan (1) Hyperammonemia Current Visit: Yes Status: Acute (2) Seizure-like activity Current Visit: No Status: Acute (3) DVT prophylaxis Current Visit: No Status: Acute (4) Developmental delay, moderate Current Visit: Yes Status: Chronic (5) Schizoaffective disorder Current Visit: No Status: Chronic (6) At risk for polypharmacy Current Visit: Yes Status: Acute (7) Change in mental state Current Visit: Yes Status: Acute - Time Spent with Patient Total time spent is greater than 50% in coordination of care (as documented) at patient's floor/unit and/or counseling patient: Internal Medicine: Result - Labs CBC & Chem 7: 08/16/18 04:59 08/16/18 04:59 Labs: Short CBC 08/16/18 Range/Units 04:59 WBC 5.1 (4.3-11.1) K/mcL Hgb 11.1 L D (12.9-16.9) g/dL Hct 35.3 L (37.5-50.1) % Plt Count 136 L (140-400) K/mcL Neutrophils # 2.4 (1.6-8.9) K/mcL BMP 08/16/18 04:59 Sodium 141 Potassium 3.8 Chloride 110 H Carbon Dioxide 23 BUN 11 Creatinine 0.76 Glucose 87 Calcium 8.8 Liver Function 08/16/18 Range/Units 04:59 Total Bilirubin 0.4 (0.3-1.0) mg/dL AST 10 L (13-39) Units/L ALT 9 (7-52) Units/L Alkaline Phosphatase 49 (34-104) Units/L Albumin 3.6 (3.5-5.7) g/dL - ABG Interpretation ABG results: PT/INR, D-dimer PT 13.3 Seconds (9.4-12.1) H 08/16/18 04:59 Consult Discharge Plan - Plan Referrals: Brenna Arthur MD [Primary Care Provider] - - Attending Attestation I examined this patient and my medical decision-making was reviewed with the Resident Physician Dr Wright. I agree with the documented findings, disposition and treatment plan as described except to the extent set forth below. Mr Guaman is being observed for change in mental status asleep, stirs to name, appears somnolent, mumbles appropriately what his name is. Doesn't answer other questions or follow commands. No family/caregiver at bedside. gen- somnolent, appears stated age, nad eyes- pupils equal round cv- reg rate and rhythm, normal s1s2, no jvd or le edema lungs- ctabl in ant/lat fileds, normal resp effort on room air abd- soft, no apparent tenderness, no guard or grimace to palpation, non distended skin- warm, dry, no rash or visible wounds neuro- oriented to person, too somnolent to answer other questions, does not fo llow commands, no facial asymmetry noted Acute Encephalopathy, clinically unable to determine at this time differential includes polypharmacy with over sedation, less likely current seizure as none witnessed, but possible unwitnessed seizure prompting ED visit, do not suspect CVA given history/age/med hx and CT head neg for other acute findings; low suspicion infection -appreciate psych input, decrease Haldol -awaiting neuro eval and further work up pendign neuro recs -keep npo, outpatient receptionist eval, prn hypglycemics + IVF while npo + accu checks -staff attempting to get further info from long-term regarding baseline MRDD/Mood Disorder/Behavioral disturbance- cont cogentin and meds as recommended by pscyh, QTc reviewed on admit and acceptable 448 Seizure D/O- cont home seizure meds, seizure precautions, cont home atival to avoid lowering seizure threshold until evlauted by neuro Chronic ammonia elevation at baseline- monitor bms with lactulose chronic anemia at baseline further dx and plan as noted by resident <Anne Wright - Last Filed: 08/16/18 15:07> Hospitalist Progress Note - Encounter Date of Encounter: 08/16/18 Time of Encounter: 10:17 - Subjective Interval History: Patient seen and examined bedside he is resting comfortably laying in bed no acute distress. He mumbles when he speaks. He answers some questions with yes or no. He is unreliable and questioning. His nurse stated that and reports it is noted that at the facility he lives then he is able to eat food if it is chopped up very small. She will call the long-term to clarify. Psychiatry had seen him this morning. - Exam Vitals: Temp Pulse Resp BP Pulse Ox 97.6 F 94 20 119/77 93 08/16/18 08:17 08/16/18 08:17 08/16/18 08:17 08/16/18 08:17 08/16/18 08:17 Exam: Gen.: Vitals noted. No acute distress. HEENT: oropharynx clear, Normocephalic, atraumatic Cardiac: RRR, no murmur, +S1/S2 Pulmonary: CTA bilaterally, no wheezes, rales or rhonchi, equal chest expansion Abdomen: soft, nontender, Bowel sounds noted, no guarding MSK: no joint swelling noted Extremities: no BLE edema, nontender calf, no cyanosis or clubbing Neuro: moves all extremities, no focal deficits Psych: Appropriate mood and behavior - Assessment and Plan (1) Acute encephalopathy Current Visit: Yes Status: Acute Assessment and Plan: Acute encephalopathy -patient has baseline MRDD, behavioral issues. This is most likely due to polypharmacy for his psychiatric illness and behavioral issues. This is unlikely stroke as is age, medical history. No reports of seizure like activity. No evidence of infection. -U/A unremarkable -blood culture NTD -CXR, Abd CT, cervical CT, head CT all unremarkable -UDS positive for benzo's which is on home at this Plan -neurology consulted, appreciate recommendations. They recommend that since the patient does show some muscle rigidity that would be concerning for NMS however he takes bromocriptine regularly so this is unlikely. Recommend to monitor. Recommend to continue Keppra 500 mg b.i.d. and topiramate. Also recommend Ativan should he have seizures. Recommend that he follow up with his neurologist outpatient as he may benefit from ambulatory EEG monitoring. -psychiatry consulted, appreciate recommendations. Per psychiatry to continue home latuda, and oral Haldol, Valium, Ambien, Cogentin, clomipramine, and medroxyprogesterone. Zoloft 100 Q a.m. and 50 Q HS. Topamax 100 Q a.m. and 200 Q HS. Decrease Haldol to 5 mg b.i.d. since his Haldol decanoate was increased from 100 mg to 150 mg and he gets this at a frequency of every 2 weeks. -will await blood levels of medications including topiramate, valproate -NPO, consult speech, IVF D5 at 75ml, Accu check q6h -patient's nurse is going to contact facility to find out baseline mental status -Continue home lactulose oral and if he will not take oral been rectal suppository. Monitor bowel movement frequency. -Fall precautions -will continue psychiatric medications as per psychiatry recommendations except for Valium and Ambien will hold. (2) At risk for polypharmacy Current Visit: Yes Status: Acute Assessment and Plan: Patient has significant medication lists with high risk medications including anti-seizure, antipsychotics, benzos. -Psychiatry been consulted, appreciate recommendations. They recommend to decrease haldol to 5mg BID since his IV dose had been increased. Recommend to discontinue Depakote due to elevated ammonia level. (3) Anemia Current Visit: Yes Status: Acute Assessment and Plan: Anemia -appears chronic and etiology. Patient is at his baseline Hgb 12 -hemoglobin 11.1 -no obvious active bleeding -will continue to monitor (4) Fever Current Visit: Yes Status: Acute Assessment and Plan: Fever -it was initially reported that patient at home had a fever. During hospital admission patient has not had a fever. -Afebrile, hemodynamically stable -WBC WNL -U/A unremarkable -blood culture NTD -CXR, Abd CT, cervical CT, head CT all unremarkable plan -there is no obvious source of infection and he is afebrile hemodynamically stable. Will hold off on antibiotics at this time as there is no indication. Will continue to monitor. (5) Developmental delay, moderate Current Visit: Yes Status: Chronic Assessment and Plan: Patient has history of MRDD/ mood disorder, behavior disturbance. He is on multiple medications. -EKG showed QTC was acceptable for 48 -psychiatry consulted, appreciate recommendations. -Medications and plan as above (6) Hyperammonemia Current Visit: Yes Status: Acute Assessment and Plan: Patient has chronic elevated ammonia level. He is at his baseline level. In the past elevated ammonia level was attributed to Depakot for which neurology recommended it be discontinued, however still listed on home medication list. -Ammonia 77, at baseline -continue home lactulose oral and if he will not take then switch to rectal suppository. -psychiatry and neurology recommends to discontinue Depakote due to elevated ammonia levels. (7) History of seizure Current Visit: Yes Status: Acute Assessment and Plan: History of seizures -unknown last seizure -patient takes Keppra and Topamax -Depakote had been discontinued due to elevated ammonia level -neurology consulted, appreciate recommendations. They recommend that since the patient does show some muscle rigidity that would be concerning for NMS however he takes bromocriptine regularly so this is unlikely. Recommend to monitor. Recommend to continue Keppra 500 mg b.i.d. and topiramate. Also recommend Ativan should he have seizures. Recommend that he follow up with his neurologist outpatient as he may benefit from ambulatory EEG monitoring. -Will continue Keppra and topiramate per neurology recommendation (8) DVT prophylaxis Current Visit: No Status: Acute Assessment and Plan: SCD fall risk - Time Spent with Patient Total time spent is greater than 50% in coordination of care (as documented) at patient's floor/unit and/or counseling patient: Internal Medicine: Result - Labs CBC & Chem 7: 08/16/18 04:59 08/16/18 04:59 Labs: Short CBC 08/15/18 08/16/18 Range/Units 11:08 04:59 WBC 4.9 5.1 (4.3-11.1) K/mcL Hgb 12.8 L 11.1 L D (12.9-16.9) g/dL Hct 39.2 35.3 L (37.5-50.1) % Plt Count 156 136 L (140-400) K/mcL Neutrophils # 2.2 2.4 (1.6-8.9) K/mcL BMP 08/15/18 08/16/18 11:08 04:59 Sodium 138 141 Potassium 4.0 3.8 Chloride 110 H 110 H Carbon Dioxide 24 23 BUN 10 11 Creatinine 0.86 0.76 Glucose 90 87 Calcium 9.4 8.8 Liver Function 08/15/18 08/16/18 Range/Units 11:08 04:59 Total Bilirubin 0.5 0.4 (0.3-1.0) mg/dL Direct Bilirubin 0.0 (0.0-0.2) mg/dL AST 12 L 10 L (13-39) Units/L ALT 10 9 (7-52) Units/L Alkaline Phosphatase 46 49 (34-104) Units/L Albumin 4.0 3.6 (3.5-5.7) g/dL Urine 08/15/18 Range/Units 11:45 Urine Color Dark Yellow (Yellow) Urine Clarity Clear (Clear) Urine pH 6.0 (5.0-8.0) pH Units Ur Specific [place] 1.025 (1.010-1.025) Urine Protein Negative (Neg-Trace) mg/dL Urine Glucose (UA) Normal (Normal) mg/dL - ABG Interpretation ABG results: PT/INR, D-dimer PT 13.3 Seconds (9.4-12.1) H 08/16/18 04:59 - Impressions Impressions Abdomen/Pelvis CT 08/15/18 10:52 IMPRESSION: No CT evidence of an acute intra-abdominal or intrapelvic process. D/ / Mauro Perez / Mauro Perez Interpreting Provider: Mauro Perez Cervical Spine CT 08/15/18 10:52 IMPRESSION: No acute abnormality of the cervical spine. D/ / Mauro Perez / Mauro Perez Interpreting Provider: Mauro Perez Chest X-Ray 08/15/18 10:52 IMPRESSION: Suboptimal inspiration. Mild bibasilar atelectasis. D/ / Matheus Gu MD / Matheus Gu MD Interpreting Provider: Matheus Gu MD Head CT 08/15/18 10:52 IMPRESSION: 1.No acute intracranial abnormality. D/ / Dmitriy Bertrand MD / Dmitriy Bertrand MD Interpreting Provider: Dmitriy Bertrand MD <Sandy Arrieta - Last Filed: 08/16/18 13:38> (5) Schizoaffective disorder Qualifiers: Qualified Code(s): F25.9 - Schizoaffective disorder, unspecified (7) Change in mental state Qualifiers: Qualified Code(s): R41.82 - Altered mental status, unspecified
[2018-08-16] MEDS: LEVOCARNITINE 330 MG PO SCH ×3 (10:09→20:27)
[2018-08-16] MEDS: levETIRAcetam 250 MG TABLET PO SCH ×2 (10:13→20:23)
[2018-08-16] MEDS: *HR* LORazepam 1 MG TABLET PO SCH ×3 (10:13→20:22)
[2018-08-16] MEDS: Desitin (Zinc Oxide) 56 GM TUBE TP SCH ×2 (10:14→22:14)
[2018-08-16] MEDS: Lactulose Oral Soln 20 GM/30 ML UDC PO SCH ×3 (10:14→20:24)
[2018-08-16] MEDS: Topiramate 100 MG TABLET PO SCH ×2 (10:14→20:23)
--- NOTE | 2018-08-16 13:49 | Neurology - Consult Note ---
Date of Encounter: 08/16/18 Time of Encounter: 13:43 Assessment and Plan (1) Change in mental state Current Visit: Yes Status: Acute Patient has developed few days of fever, and altered mental status and he is on polypharmacy including multiple psychotrophic medications and psychiatry noted reviewed and indeed patient should be watched for polypharmacy and also possible NMS. The patient is not having significant tremors or shakes but he is clearly rigid not sure this is his baseline since he suppose to have chronic EPS due to oil [employer] antipsychotic exposure. Fever, altered mental status and muscle rigidity would concern for NMS. However, he has been on Bromocryptine regularly so this may counter NMS. Recommend close monitoring and obvious hyperammonia can also contribute to his altered mental status. I agree with the idea that he should be off Depakote, since Depakote can contribute to hepatic toxicity especially with polypharmacy. However, from seizure management perspective, it would not be a good idea to stop the medication cold . Would recommend continuing Keppra 500mg bid since this would be renally excreted, so as Topiramate. In case seizure recurs, increase in Keppra dose can be titrated up to 1500mg bid. Maximal topiramate dosage would be 200mg bid. Please note that the patient also take ativan 1m tid regularly, this would be effectively treat his seizures too. Qualifiers: Altered mental status type: somnolence Qualified Code(s): R40.0 - Somnolence (2) Seizure-like activity Current Visit: No Status: Acute Patient currently does not have seizures. His seizure type is unclear and he has not been evaluated here at [place]. Not sure he has epileptic or non-epileptic events and his seizure evaluation history if unknown. Treatment for his seizure at present time is essentially empirical. He should follow up with his primary neurology for proper follow up and if he does not have one he is welcome to see one of us. He may benefit from outpatient ambulatory EEG monitoring. However, he may have already established with other neurologist History of Present Illness Chief complaint: altered mental status and fever and seizure medication belén amanda HPI: Mr. Guaman is a 37 year old male with PMH significant for schizophrenia autism disorder, MRDD OCD, EPS on detention antipsychotic exposure, and history of seizure disorder who presented to ER with altered mental status and fever x 3days. Neurology was consulted not because of recurrent seizure but management of his seizure meds, due to concerns for polypharmacy. Initially i recommended the patient to continue on his home seizure medication, this including Depakote, Topiramate and Keppra. reportedly his depakote and Topiramate dosages were increased due to unknown reason. Patient was admitted during May/2018 due to altered mental status and he was found to have elevated ammonia level and his depakote was discontinued and started keppra. He has been on also ativan 1mg tid. It is unclear why depakote was restarted. After the last admission in May/2018 he was recommended to see neurologist. It is unclear who did he see, may be at another facility. Patient unable to give information. He is on Keppra 500mg bid, Depakote ( which is currently held), topiramate 200mg qhs and 100mg qam. Ativan 1mg tid. Past Med Surg Social Fam HX - Past Medical History Medical history: GERD, hypertension, seizures, other Additional medical history: Last seizure: 05/12/2018 Psychiatric history: previous psychiatric hospitalization - Past Surgical History Surgical History: no surgical history, other Additional surgical history: heart cath - Social History Smoking Status: Never smoker Smokeless Tobacco Status: No Alcohol use: none Drug use: none Medications and Allergies Bromocriptine [Parlodel] 2.5 mg PO DAILY 11/12/17 [History] Cimetidine 200 mg PO BID 11/12/17 [History] Clomipramine HCl 50 mg PO HS 11/12/17 [History] Desitin (Zinc Oxide) [Desitin Diaper Rash 40 % Paste] 1 appl TP BID 11/12/17 [History] DiphenhydraMINE [Benadryl] 25 mg PO Q6HR PRN #20 capsule 11/12/17 [Rx] Docusate Sodium [Dok] 100 mg PO BID 11/12/17 [History] Haloperidol 10 mg PO BID 11/12/17 [History] Hydrocortisone Valerate 1 appl TP BID 11/12/17 [History] Lurasidone HCl [Latuda] 80 mg PO QPM 11/12/17 [History] Zolpidem [Ambien] 5 mg PO HS 11/12/17 [History] diazePAM [Valium] 5 mg PO ONCE 11/12/17 [History] Lactulose [Enulose] 20 gm PO TID 05/02/18 [History] Lurasidone [Latuda] 40 mg PO QAM 05/02/18 [History] LevETIRAcetam [Keppra] 500 mg PO BID #90 tablet 05/03/18 [Rx] Acetaminophen [Non-Aspirin] 650 mg PO Q4H PRN 08/15/18 [History] Benztropine [Cogentin] 1 mg PO BID 08/15/18 [History] Diazepam [Diastat Acudial] 1 each RC ONCE PRN 08/15/18 [History] Haloperidol Decanoate 1.5 ml IM Q2W 08/15/18 [History] Ibuprofen [Motrin Ib] 400 mg PO Q4H PRN 08/15/18 [History] Ketoconazole Shampoo [Nizoral Shampoo] 1 appl TP Q72H PRN 08/15/18 [History] LORazepam [Ativan] 1 mg PO TID 08/15/18 [History] Loperamide [Imodium] 2 mg PO AD PRN 08/15/18 [History] Magnesium Hydroxide [Milk of Magnesia] 30 ml PO DAILY PRN 08/15/18 [History] Medroxyprogesterone Acetate 150 mg IM Q60D 08/15/18 [History] Sertraline [Zoloft] 50 mg PO HS 08/15/18 [History] Sertraline [Zoloft] 100 mg PO QAM 08/15/18 [History] Topiramate [Topamax] 100 mg PO QAM 08/15/18 [History] Topiramate [Topamax] 200 mg PO HS 08/15/18 [History] levOCARNitine [Levocarnitine] 330 mg PO TID 08/15/18 [History] Allergy/AdvReac Type Severity Reaction Status Date / Time Penicillins [PCN] Allergy Hives Verified 05/12/18 19:19 All Systems: The remainder of the systems were reviewed and are negative - Constitutional Constitutional ROS IM: anorexia (no), chills (no), fever(s) (yes), headache(s) (no), lethargy (yes) - Nose, Mouth, Throat Nose, mouth and throat: abnormal hearing (no), disequilibrium (no), dizziness (no), facial pain (no) - Cardiovascular Cardiovascular ROS IM: chest pain (no), chest pain at rest (no), chest pain with activity (no) - Gastrointestinal Gastrointestinal: abdominal pain (no) - Genitourinary Genitourinary ROS: difficulty urinating (no), difficulty voiding (no) - Musculoskeletal Musculoskeletal ROS IM: abnormal gait (no) - Neurological Neurological ROS: abnormal gait (no), abnormal hearing (no), abnormal movements (no), abnormal speech (yes), behavioral changes (yes), confusion (yes) - Psychiatric Psychiatric general PM: other (Unable to assess) Physical Examination - Vital Signs Vital Signs: Initial Vital Signs Temp Pulse Resp BP Pulse Ox 97.9 F 93 16 122/83 98 08/15/18 10:25 08/15/18 10:25 08/15/18 10:25 08/15/18 10:25 08/15/18 10:25 - Constitutional General appearance: comfortable - Neurologic Sensorimotor examination: other (Unble to assess due to altered mental status) Detailed motor examination: grossly full strength in all extremities, other ( Patient has no obvious focal weakness. He does not follow commands so muscle strength assessment difficulty, notices diffuse muscle ridigity. Has significant bradykinesis) Detailed sensory examination: other (Unable to assess) Posture: other (Rigit but no specific posture) Reflex and gait examination: other (Gait not assessed) Reflexes: Biceps: 2+, Triceps: 2+, Brachioradialis: 2+, Patella: 2+, Achilles: 2+ Mental Status Examination: awake, alert (Able to showed two fingers, significantly reduced verbal output. ), opens eyes to voice, opens eyes to noxious stimulation, makes eye contact (Rarely. ), follows simple commands Cranial nerve examination: PERRL, EOMI (Difficulty to assess), corneal reflexes brisk symmetrically, sensory to face intact, mastication intact, no facial asymmetry is present, no dysarthria (Significant dysarthria noted), hearing is intact symmetrically, soft palate elevates bilaterally upon phonation (Unable to assess), tongue protrudes midline (Unble to assess) Results - Laboratory Findings CBC and BMP: 08/16/18 04:59 08/16/18 04:59 Abnormal lab findings: Abnormal lab results RBC 3.74 M/mcL (4.19-5.50) L 08/16/18 04:59 Hgb 11.1 g/dL (12.9-16.9) L D 08/16/18 04:59 Hct 35.3 % (37.5-50.1) L 08/16/18 04:59 MCHC 31.4 g/dL (31.6-35.5) L 08/16/18 04:59 Plt Count 136 K/mcL (140-400) L 08/16/18 04:59 PT 13.3 Seconds (9.4-12.1) H 08/16/18 04:59 Chloride 110 mEq/L (98-107) H 08/16/18 04:59 POC Glucose 63 mg/dL (70-99) L 08/15/18 17:59 AST 10 Units/L (13-39) L 08/16/18 04:59 77 mcmol/L (16-53) H 08/16/18 07:01 6.3 g/dL (6.4-8.9) L 08/16/18 04:59 Triglycerides 209 mg/dL (< 150) H 08/16/18 04:59 VLDL Cholesterol, Calc 42 mg/dL (< 31) H 08/16/18 04:59 14 mg/dL (40-59) L 08/16/18 04:59 9.6 (0-4.9) H 08/16/18 04:59 Salicylates < 2.5 mg/dL (15.0-30.0) L 08/15/18 11:08 Acetaminophen < 10 mcg/mL (10-20) L 08/15/18 11:08 U Benzodiazepines Scrn Positive ng/mL (Mddmwm=[id number]) H 08/15/18 11:45 - Diagnostic Findings Additional findings: EXAMINATION: CT OF THE HEAD WITHOUT CONTRAST 08/15/2018 12:04 pm TECHNIQUE: CT of the head was performed without the administration of intravenous contrast. Dose modulation, iterative reconstruction, and/or weight based adjustment of the mA/kV was utilized to reduce the radiation dose to as low as reasonably achievable. COMPARISON: 05/01/2018. HISTORY: ORDERING SYSTEM PROVIDED HISTORY: fall FINDINGS: BRAIN/VENTRICLES: There is no acute intracranial hemorrhage, mass effect or midline shift. No abnormal extra-axial fluid collection. The foote-white differentiation is maintained without evidence of an acute infarct. There is no evidence of hydrocephalus. ORBITS: The visualized portion of the orbits demonstrate no acute abnormality. SINUSES: The visualized paranasal sinuses and mastoid air cells demonstrate no acute abnormality. SOFT TISSUES/SKULL: No acute abnormality of the visualized skull or soft tissues. CT/CT head/brain wo con IMPRESSION: 1.No acute intracranial abnormality. D/ / Dmitriy Bertrand MD / Dmitriy Bertrand MD Interpreting Provider: Dmitriy Bertrand MD OF THE CERVICAL SPINE WITHOUT CONTRAST 08/15/2018 12:03 pm TECHNIQUE: CT of the cervical spine was performed without the administration of intravenous contrast. Multiplanar reformatted images are provided for review. Dose modulation, iterative reconstruction, and/or weight based adjustment of the mA/kV was utilized to reduce the radiation dose to as low as reasonably achievable. COMPARISON: None. HISTORY: ORDERING SYSTEM PROVIDED HISTORY: fall FINDINGS: BONES/ALIGNMENT: Cervical curvature reversal. There is no evidence of an acute cervical spine fracture. There is normal alignment of the cervical spine. DEGENERATIVE CHANGES: No significant degenerative changes. SOFT TISSUES: There is no prevertebral soft tissue swelling. CT/CT cervical spine wo con IMPRESSION: No acute abnormality of the cervical spine. D/ / Mauro Perez / Mauro Perez Interpreting Provider: Mauro Perez Consult Discharge Plan - Plan Referrals: Brenna Arthur MD [Primary Care Provider] -
[2018-08-16] MEDS: D5% in Lactated Ringers 1,000 ML IVC SCH (15:33)
[2018-08-16] MEDS: Famotidine 20 MG TABLET PO SCH (20:24)
[2018-08-17 07:14] LABS: Estimated Average Glucose 111 mg/dl
--- NOTE | 2018-08-17 08:43 | Internal Med Progress Note ---
<Sandy Arrieta - Last Filed: 08/17/18 13:57> Hospitalist Progress Note - Encounter Date of Encounter: 08/17/18 - Exam Vitals: Temp Pulse Resp BP Pulse Ox 98.0 F 89 15 105/72 94 08/17/18 11:18 08/17/18 11:18 08/17/18 11:18 08/17/18 11:18 08/17/18 11:18 - Assessment and Plan (1) Hyperammonemia Current Visit: Yes Status: Acute (2) DVT prophylaxis Current Visit: No Status: Acute (3) Developmental delay, moderate Current Visit: Yes Status: Chronic (4) At risk for polypharmacy Current Visit: Yes Status: Acute (5) Anemia Current Visit: Yes Status: Acute (6) History of seizure Current Visit: Yes Status: Acute (7) Acute encephalopathy Current Visit: Yes Status: Acute (8) Fever Current Visit: Yes Status: Acute - Time Spent with Patient Total time spent is greater than 50% in coordination of care (as documented) at patient's floor/unit and/or counseling patient: Internal Medicine: Result - Labs CBC & Chem 7: 08/17/18 09:43 08/16/18 04:59 Labs: Short CBC 08/17/18 Range/Units 09:43 WBC 5.6 (4.3-11.1) K/mcL Hgb 11.6 L (12.9-16.9) g/dL Hct 36.3 L (37.5-50.1) % Plt Count 153 (140-400) K/mcL Neutrophils # 3.2 (1.6-8.9) K/mcL - ABG Interpretation ABG results: PT/INR, D-dimer PT 13.3 Seconds (9.4-12.1) H 08/16/18 04:59 Consult Discharge Plan - Plan Referrals: Brenna Arthur MD [Primary Care Provider] - - Attending Attestation I examined this patient and my medical decision-making was reviewed with the Resident Physician Dr Pedro. I agree with the documented findings, disposition and treatment plan as described except to the extent set forth below. Mr Guaman is being observed for change in mental status awake, rn at bedside. He speaks and answers questions but needs redirected to maintain attention. He is child like in his responses and understanding. states "I just ate breakfast. look at my teeth". taking morning meds without issue. gen- awake, appears stated age, nad cv- reg rate and rhythm, normal s1s2 lungs- ctabl normal resp effort on room air abd- soft, no apparent tenderness, non distended skin- warm, dry, no rash or visible wounds neuro- oriented to person, too somnolent to answer other questions, does not follow commands, no facial asymmetry noted Acute Encephalopathy,resolved baseline mentation obtained from fdc and pt at baseline suspected etiology polypharmacy with over sedation -appreciate psych input, decreased Haldol -appreciate neuro input- outpt neuro established fu and consider outpt ambulatory eeg MRDD/Mood Disorder/Behavioral disturbance- cont cogentin and meds as recommended by [facility] Seizure D/O- cont home seizure meds, cont home ativan Chronic ammonia elevation at baseline chronic anemia at baseline further dx and plan as noted by resident dispo is pending pt/ot isi as fdc reported he is having falls and he has demonstrated unsteady gait this admission <Oneil Pedro - Last Filed: 08/17/18 14:37> Hospitalist Progress Note - Encounter Date of Encounter: 08/17/18 Time of Encounter: 09:10 - Subjective Interval History: When seen today patient was A and O 0. He was mumbling frequently and was having difficulty answering my questions. He denied any abdominal pain, nausea, or vomiting. He denied any chest pain or shortness of breath. Patient was resting comfortably in his bed. - Exam Vitals: Temp Pulse Resp BP Pulse Ox 98.7 F 79 15 127/83 97 08/17/18 06:43 08/17/18 06:43 08/17/18 06:43 08/17/18 06:43 08/17/18 06:43 Exam: GENERAL APPEARANCE: Well developed, well nourished, alert and oriented x 0, and appears to be in no acute distress. HEAD: normocephalic. EYES: vision is grossly intact. EARS: hearing grossly intact. NOSE: No nasal discharge. THROAT: Oral cavity and pharynx normal. No inflammation, swelling, exudate, or lesions. NECK: Neck supple, non-tender without lymphadenopathy, masses or thyromegaly. CARDIAC: Normal S1 and S2. No S3, S4 or murmurs. Rhythm is regular. There is no peripheral edema, cyanosis or pallor. Extremities are warm and well perfused. Capillary refill is less than 2 seconds. No carotid bruits. LUNGS: Clear to auscultation and percussion without rales, rhonchi, wheezing or diminished breath sounds. ABDOMEN: Positive bowel sounds. Soft, nondistended, nontender. No guarding or rebound. No masses. EXTREMITIES: No significant deformity or joint abnormality. No edema. Peripheral pulses intact. No varicosities. LOWER EXTREMITY: Examination of both feet reveals all toes to be normal in size and symmetry, normal range of motion, normal sensation with distal capillary filling of less than 2 seconds without tenderness, swelling, discoloration, nodules, weakness or deformity. PSYCHIATRIC: The mental examination revealed the patient was not oriented to person, place, and time. With display poor eye contact. Frequently mumbling. Soft spoken. Flat affect. - Assessment and Plan (1) Acute encephalopathy Current Visit: Yes Status: Acute Assessment and Plan: Acute encephalopathy -patient has baseline MRDD, behavioral issues. This is most likely due to polypharmacy for his psychiatric illness and behavioral issues. This is unlikely stroke as is age, medical history. No reports of seizure like activity. No evidence of infection. -U/A unremarkable -blood culture NTD -CXR, Abd CT, cervical CT, head CT all unremarkable -UDS positive for benzo's which is on home at this 08/17/18: blood levels of medications including topiramate and valproate were WNL. Speech therapy advanced patient to soft diet. Plan -neurology consulted, appreciate recommendations. They recommend that since the patient does show some muscle rigidity that would be concerning for NMS however he takes bromocriptine regularly so this is unlikely. Recommend to monitor. Recommend to continue Keppra 500 mg b.i.d. and topiramate. Also recommend Ativan should he have seizures. Recommend that he follow up with his neurologist outpatient as he may benefit from ambulatory EEG monitoring. -psychiatry consulted, appreciate recommendations. Per psychiatry to continue home latuda, and oral Haldol, Valium, Ambien, Cogentin, clomipramine, and medroxyprogesterone. Zoloft 100 Q a.m. and 50 Q HS. Topamax 100 Q a.m. and 200 Q HS. Decrease Haldol to 5 mg b.i.d. since his Haldol decanoate was increased from 100 mg to 150 mg and he gets this at a frequency of every 2 weeks. - F/U with PT/OT for recommendations. - IVF D5 at 75ml, Accu check q6h -C/W patient's nurse is going to contact facility to find out baseline mental status -Continue home lactulose oral and if he will not take oral been rectal sup pository. Monitor bowel movement frequency. -Fall precautions -will continue psychiatric medications as per psychiatry recommendations except for Valium and Ambien will hold. (2) At risk for polypharmacy Current Visit: Yes Status: Acute Assessment and Plan: Patient has significant medication lists with high risk medications including anti-seizure, antipsychotics, benzos. -Psychiatry been consulted, appreciate recommendations. They recommend to decrease haldol to 5mg BID since his IV dose had been increased. Recommend to discontinue Depakote due to elevated ammonia level. (3) Anemia Current Visit: Yes Status: Acute Assessment and Plan: Anemia -appears chronic and etiology. Patient is at his baseline Hgb 12 -no obvious active bleeding -will continue to monitor (4) Fever Current Visit: Yes Status: Resolved Assessment and Plan: Fever -it was initially reported that patient at home had a fever. During hospital admission patient has not had a fever. -Afebrile, hemodynamically stable -WBC WNL -U/A unremarkable -blood culture NTD -CXR, Abd CT, cervical CT, head CT all unremarkable plan -there is no obvious source of infection and he is afebrile hemodynamically stable. Will hold off on antibiotics at this time as there is no indication. Will continue to monitor. (5) Developmental delay, moderate Current Visit: Yes Status: Chronic Assessment and Plan: Patient has history of MRDD/ mood disorder, behavior disturbance. He is on multiple medications. -EKG showed QTC was acceptable for 48 -psychiatry consulted, appreciate recommendations. -Medications and plan as above (6) Hyperammonemia Current Visit: Yes Status: Acute Assessment and Plan: Patient has chronic elevated ammonia level. He is at his baseline level. In the past elevated ammonia level was attributed to Depakot for which neurology recommended it be discontinued, however still listed on home medication list. -Ammonia 77, at baseline -continue home lactulose oral and if he will not take then switch to rectal suppository. -psychiatry and neurology recommends to discontinue Depakote due to elevated ammonia levels. (7) History of seizure Current Visit: Yes Status: Acute Assessment and Plan: History of seizures -unknown last seizure -patient takes Keppra and Topamax -Depakote had been discontinued due to elevated ammonia level -neurology consulted, appreciate recommendations. They recommend that since the patient does show some muscle rigidity that would be concerning for NMS however he takes bromocriptine regularly so this is unlikely. Recommend to monitor. Recommend to continue Keppra 500 mg b.i.d. and topiramate. Also recommend Ativan should he have seizures. Recommend that he follow up with his neurologist outpatient as he may benefit from ambulatory EEG monitoring. -Will continue Keppra and topiramate per neurology recommendation (8) DVT prophylaxis Current Visit: No Status: Acute Assessment and Plan: SCD fall risk - Time Spent with Patient Total time spent is greater than 50% in coordination of care (as documented) at patient's floor/unit and/or counseling patient: Internal Medicine: Result - Labs CBC & Chem 7: 08/17/18 09:43 08/16/18 04:59 - ABG Interpretation ABG results: PT/INR, D-dimer PT 13.3 Seconds (9.4-12.1) H 08/16/18 04:59
--- NOTE | 2018-08-17 08:53 | Electrocardiograph Report ---
[place] Posted[place] Test Date: 2018-08-15 Pat Name: Maurizio Guaman Department: EXAM4 Room: 3A63 Gender: M [facility]: : 1980 Requested By: Matheus Valdez Order Number: [id number] Reading MD: Oniel Lopez Measurements Intervals [place] Rate: 85 P: 24 OR: 162 QRS: 42 QRSD: 103 T: 43 QT: 376 QTc: 448 Interpretive Statements sinus rhythm wnl Electronically Signed On 08-17-2018 8:52:08 EDT by Oniel Lopez
[2018-08-17] MEDS: *HR* LORazepam 1 MG TABLET PO SCH ×3 (09:22→22:19)
[2018-08-17] MEDS: Lactulose Oral Soln 20 GM/30 ML UDC PO SCH ×3 (09:22→22:19)
[2018-08-17] MEDS: D5% in Lactated Ringers 1,000 ML IVC SCH (09:23)
[2018-08-17] MEDS: Topiramate 100 MG TABLET PO SCH ×2 (09:23→22:19)
[2018-08-17] MEDS: levETIRAcetam 250 MG TABLET PO SCH ×2 (09:23→22:19)
[2018-08-17] MEDS: LEVOCARNITINE 330 MG PO SCH (09:24)
[2018-08-17] MEDS: Desitin (Zinc Oxide) 56 GM TUBE TP SCH (09:24)
[2018-08-17 10:15] LABS: Basophils % 0.2 %; Eosinophils # 0.1 K/mcL (0.0-0.6); Hematocrit 36.3 % (37.5-50.1); Hemoglobin 11.6 g/dL (12.9-16.9); Immature Granulocytes % 0.4 % (0-4); Lymphocytes # 1.6 K/mcL (0.6-4.6); Mean Corpuscular Hemoglobin 29.5 pg (28.0-33.3); Mean Corpuscular Volume 92.4 fL (83.0-100.0); Mean Platelet Volume 12.1 fL (9.4-12.4); Monocytes # 0.6 K/mcL (0.0-1.3); Monocytes % 10.8 %; Neutrophils # 3.2 K/mcL (1.6-8.9); Platelet Count 153 K/mcL (140-400); Red Blood Count 3.93 M/mcL (4.19-5.50); Red Cell Distribution Width 14.6 % (11.5-14.5); Segmented Neutrophils % 57.6 %; White Blood Count 5.6 K/mcL (4.3-11.1)
--- NOTE | 2018-08-17 11:25 | Neurology Progress Note ---
Date of Encounter: 08/17/18 Time of Encounter: 11:18 Assessment and Plan (1) Seizure-like activity Current Visit: No Status: Acute No seizure activity since admission c/w emperic seizure tx plan as discussed above F/u with primary neurologist; if he does not have one he can see one of us if he wishes May benefit from outpatient ambulatory EEG (2) Change in mental state Current Visit: Yes Status: Acute Patient with significant psychiatric history and polypharmacy on multiple anti psychotics Additionally, he has a seizure history; unknown if epileptic or nonepileptic. He is on multiple AEDs Neurology consulted to evaluate for cause of altered mental state, concerns for polypharmacy and concern for recurrent seizure activity On presentation it appears that the patient was febrile, and had AMS as well as muscular rigidity Since admission he has not had any return of seizure-like activity Today he is afebrile but his mental state remains altered. In regards to the muscular rigidity it is most likely EPS due to long-term antipsychotic use In any regard we will obtain a CK for further evaluation of NMS. However, I feel that this is less likely Encephalopathy persists today; etiology is unclear. Possibly d/t hyperammonemia, polypharmacy, a combination thereof or other Not thought to be of an infectious origin without leukocytosis, UA is normal, chest x-ray unremarkable Further, he does not have any headaches, or leukocytosis. [employer] infection lower on the differential As such neurology continues to recommend discontinuation of Depakote since Depakote can contribute to hepatic toxicity and polypharmacy We continue to recomend Keppra 500mg BID. Keppra can be increase to a total dose of 1500 mg twice a day, topiramate can be increased to a total dose of 200 mg twice a day if seizure return with discontinuation of Depakote Continuous home dose of Ativan Continue with seizure precautions Agree with continuing bromocriptine Otherwise c/w medical and supportive care Neurology will continue to follow Qualifiers: Altered mental status type: somnolence Qualified Code(s): R40.0 - Somnolence Subjective Principal diagnosis: Lethargic, AMS and seizure-like activity Interval history: The patient is seen in follow-up today for altered mental state and seizure-like activity and polypharmacy. Today he remains lethargic but is arousable to tactile verbal stimulus. However, he is confused and unable to provide any details regarding his condition. Each time he has prompted with a question he responds with the answer " I don't know" and he will not state anything otherwise. 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 Objective - Constitutional Vitals: Temp Pulse Resp BP Pulse Ox 98.7 F 79 15 127/83 97 08/17/18 06:43 08/17/18 06:43 08/17/18 06:43 08/17/18 06:43 08/17/18 06:43 Exam: Examination: General Examination: *CONSTITUTIONAL: Alert to self only, disoriented otherwise, no acute distress *GENERAL APPEARANCE OF PATIENT ill-appearing. Appears older than stated age *EYES: 4 mm B/L pupils equal, round, reactive to light and accommodation, conjunctiva clear *CARDIOVASCULAR no peripheral edema, distal temperature normal, dorsalis pedis pulses normal. See vitals Musculoskeletal: *GAIT AND STATION deferred *ASSESSMENT OF MUSCLE STRENGTH IN THE UPPER AND LOWER EXTREMITIES patient able to move bilateral bicep, tricep against resistance 4/5. He will move bilateral legs in a horizontal plane with noxious stimuli but otherwise did not overcome gravity. However his exam is complicated by his altered mental state he does not really follow commands. *MUSCLE TONE IN THE UPPER AND LOWER EXTREMITIES rigidity in all 4 extremities and neck. Spasticity noted in movement of bilateral legs Neurological: *ORIENTATION to person only *LANGUAGE FUNCTION muffled voice *MENTAL attention span and concentration are altered. Patient's baseline is unclear. He does require frequent redirection. *CN II optic fundi were normal, no papilledema noted. *CN III,IV, PERRLA extraocular motility intact as he will follow this provider throughout the room. no nystagmus and no ptosis noted to passive observation. *CN V shows normal sensation and jaw opens symmetrically. *CN VII shows normal facial movement symmetrically, upper and lower bilaterally. *CN VIII shows no significant hearing loss on exam *CN IX,,X unable to demonstrate *CN XI normal strength in the sternocleidomastoid muscles, we will follow this provider throughout the room when spoken to *CN XII unable to demonstrate *SENSORY EXAMINATION will move all 4 extremities to noxious stimulus *REFLEXES: deep tendon reflexes were normal and symmetrical , grade 2/4 diffusely, no pathological reflexes were noted. *CEREBELLAR TESTING DOES not follow command - Neurological Exam Sensorimotor examination: Present: other (Unble to assess due to altered mental status) Motor Examination: Present: grossly full strength in all extremities, other (Patient has no obvious focal weakness. He does not follow commands so muscle strength assessment difficulty, notices diffuse muscle ridigity. Has significant bradykinesis) Sensation intact: Present: other (Unable to assess) Posture: Present: other (Rigit but no specific posture) Reflex and gait examination: other (Gait not assessed) Mental Status Examination: Present: awake, alert (Able to showed two fingers, significantly reduced verbal output. ), opens eyes to voice, opens eyes to noxious stimulation, makes eye contact (Rarely. ), follows simple commands Cranial nerve examination: Present: PERRL, EOMI (Difficulty to assess), corneal reflexes brisk symmetrically, sensory to face intact, mastication intact, no facial asymmetry is present, no dysarthria (Significant dysarthria noted), hearing is intact symmetrically, soft palate elevates bilaterally upon phonation (Unable to assess), tongue protrudes midline (Unble to assess) Results - Laboratory Findings CBC and BMP: 08/17/18 09:43 08/16/18 04:59 Abnormal lab findings: Abnormal lab results RBC 3.93 M/mcL (4.19-5.50) L 08/17/18 09:43 Hgb 11.6 g/dL (12.9-16.9) L 08/17/18 09:43 Hct 36.3 % (37.5-50.1) L 08/17/18 09:43 MCHC 31.4 g/dL (31.6-35.5) L 08/16/18 04:59 RDW 14.6 % (11.5-14.5) H 08/17/18 09:43 Plt Count 136 K/mcL (140-400) L 08/16/18 04:59 PT 13.3 Seconds (9.4-12.1) H 08/16/18 04:59 Chloride 110 mEq/L (98-107) H 08/16/18 04:59 POC Glucose 63 mg/dL (70-99) L 08/15/18 17:59 AST 10 Units/L (13-39) L 08/16/18 04:59 77 mcmol/L (16-53) H 08/16/18 07:01 6.3 g/dL (6.4-8.9) L 08/16/18 04:59 Triglycerides 209 mg/dL (< 150) H 08/16/18 04:59 VLDL Cholesterol, Calc 42 mg/dL (< 31) H 08/16/18 04:59 14 mg/dL (40-59) L 08/16/18 04:59 9.6 (0-4.9) H 08/16/18 04:59 Salicylates < 2.5 mg/dL (15.0-30.0) L 08/15/18 11:08 Acetaminophen < 10 mcg/mL (10-20) L 08/15/18 11:08 U Benzodiazepines Scrn Positive ng/mL (Wshgko=248) H 08/15/18 11:45 Consult Discharge Plan - Plan Referrals: Brenna Arthur MD [Primary Care Provider] -
[2018-08-17] MEDS: Famotidine 20 MG TABLET PO SCH (22:19)
--- NOTE | 2018-08-18 08:30 | Internal Med Progress Note ---
<WillisOneil - Last Filed: 08/18/18 14:23> Hospitalist Progress Note - Encounter Date of Encounter: 08/18/18 Time of Encounter: 09:00 - Subjective Interval History: When seen today patient was alert and oriented 0. Patient had very difficult time answering questions. He denied any chest pain or shortness of breath. Adm itted to mild intermittent abdominal discomfort. Denied any nausea or vomiting. - Exam Vitals: Temp Pulse Resp BP Pulse Ox 98.8 F 85 18 109/73 99 08/18/18 08:24 08/18/18 08:24 08/18/18 08:24 08/18/18 08:24 08/18/18 08:24 Exam: GENERAL APPEARANCE: Well developed, well nourished, alert and oriented x 0, and appears to be in no acute distress. HEAD: normocephalic. EYES: vision is grossly intact. EARS: hearing grossly intact. NOSE: No nasal discharge. THROAT: Oral cavity and pharynx normal. No inflammation, swelling, exudate, or lesions. NECK: Neck supple, non-tender without lymphadenopathy, masses or thyromegaly. CARDIAC: Normal S1 and S2. No S3, S4 or murmurs. Rhythm is regular. There is no peripheral edema, cyanosis or pallor. Extremities are warm and well perfused. Capillary refill is less than 2 seconds. No carotid bruits. LUNGS: Clear to auscultation and percussion without rales, rhonchi, wheezing or diminished breath sounds. ABDOMEN: Positive bowel sounds. Soft, nondistended, nontender. No guarding or rebound. No masses. EXTREMITIES: No significant deformity or joint abnormality. No edema. Peripheral pulses intact. No varicosities. LOWER EXTREMITY: Examination of both feet reveals all toes to be normal in size and symmetry, normal range of motion, normal sensation with distal capillary filling of less than 2 seconds without tenderness, swelling, discoloration, nodules, weakness or deformity. PSYCHIATRIC: The mental examination revealed the patient was not oriented to person, place, and time. With display poor eye contact. Frequently mumbling. Soft spoken. Flat affect. - Assessment and Plan (1) Acute encephalopathy Current Visit: Yes Status: Acute Assessment and Plan: cute encephalopathy -patient has baseline MRDD, behavioral issues. This is most likely due to polypharmacy for his psychiatric illness and behavioral issues. This is unlikely stroke as is age, medical history. No reports of seizure like activity. No evidence of infection. -U/A unremarkable -blood culture NTD -CXR, Abd CT, cervical CT, head CT all unremarkable -UDS positive for benzo's which is on home at this 08/17/18: blood levels of medications including topiramate and valproate were WNL. Speech therapy advanced patient to soft diet. Plan -neurology consulted, appreciate recommendations. They recommend that since the patient does show some muscle rigidity that would be concerning for NMS however he takes bromocriptine regularly so this is unlikely. Recommend to monitor. Recommend to continue Keppra 500 mg b.i.d. and topiramate. Also recommend Ativan should he have seizures. Recommend that he follow up with his neurologist outpatient as he may benefit from ambulatory EEG monitoring. -psychiatry consulted, appreciate recommendations. Per psychiatry to continue home latuda, and oral Haldol, Valium, Ambien, Cogentin, clomipramine, and medroxyprogesterone. Zoloft 100 Q a.m. and 50 Q HS. Topamax 100 Q a.m. and 200 Q HS. Decrease Haldol to 5 mg b.i.d. since his Haldol decanoate was increased from 100 mg to 150 mg and he gets this at a frequency of every 2 weeks. - F/U with PT/OT for recommendations. - IVF D5 at 75ml, Accu check q6h -C/W patient's nurse is going to contact facility to find out baseline mental status -Continue home lactulose oral and if he will not take oral been rectal suppository. Monitor bowel movement frequency. -Fall precautions -will continue psychiatric medications as per psychiatry recommendations except for Valium and Ambien will hold. - PT/OT recommends SNF placement. (2) At risk for polypharmacy Current Visit: Yes Status: Acute Assessment and Plan: Patient has significant medication lists with high risk medications including anti-seizure, antipsychotics, benzos. -Psychiatry been consulted, appreciate recommendations. They recommend to decrease haldol to 5mg BID since his IV dose had been increased. Recommend to discontinue Depakote due to elevated ammonia level. (3) Anemia Current Visit: Yes Status: Acute Assessment and Plan: Anemia -appears chronic and etiology. Patient is at his baseline Hgb 12 -no obvious active bleeding -will continue to monitor (4) Fever Current Visit: Yes Status: Resolved Assessment and Plan: Fever -it was initially reported that patient at home had a fever. During hospital admission patient has not had a fever. -Afebrile, hemodynamically stable -WBC WNL -U/A unremarkable -blood culture NTD -CXR, Abd CT, cervical CT, head CT all unremarkable plan -there is no obvious source of infection and he is afebrile hemodynamically stable. Will hold off on antibiotics at this time as there is no indication. Will continue to monitor. (5) Developmental delay, moderate Current Visit: Yes Status: Chronic Assessment and Plan: Patient has history of MRDD/ mood disorder, behavior disturbance. He is on multiple medications. -EKG showed QTC was acceptable for 48 -psychiatry consulted, appreciate recommendations. -Medications and plan as above (6) Hyperammonemia Current Visit: Yes Status: Acute Assessment and Plan: Patient has chronic elevated ammonia level. He is at his baseline level. In the past elevated ammonia level was attributed to Depakot for which neurology recommended it be discontinued, however still listed on home medication list. -Ammonia 77, at baseline -continue home lactulose oral and if he will not take then switch to rectal suppository. -psychiatry and neurology recommends to discontinue Depakote due to elevated ammonia levels. (7) History of seizure Current Visit: Yes Status: Acute Assessment and Plan: History of seizures -unknown last seizure -patient takes Keppra and Topamax -Depakote had been discontinued due to elevated ammonia level -neurology consulted, appreciate recommendations. They recommend that since the patient does show some muscle rigidity that would be concerning for NMS however he takes bromocriptine regularly so this is unlikely. Recommend to monitor. Recommend to continue Keppra 500 mg b.i.d. and topiramate. Also recommend Ativan should he have seizures. Recommend that he follow up with his neuro logist outpatient as he may benefit from ambulatory EEG monitoring. -Will continue Keppra and topiramate per neurology recommendation (8) DVT prophylaxis Current Visit: No Status: Acute Assessment and Plan: SCD fall risk - Time Spent with Patient Total time spent is greater than 50% in coordination of care (as documented) at patient's floor/unit and/or counseling patient: Internal Medicine: Result - Labs CBC & Chem 7: 08/17/18 09:43 06/16/19 04:59 Labs: Short CBC 08/17/18 Range/Units 09:43 WBC 5.6 (4.3-11.1) K/mcL Hgb 11.6 L (12.9-16.9) g/dL Hct 36.3 L (37.5-50.1) % Plt Count 153 (140-400) K/mcL Neutrophils # 3.2 (1.6-8.9) K/mcL - ABG Interpretation ABG results: PT/INR, D-dimer PT 13.3 Seconds (9.4-12.1) H 08/16/18 04:59 Consult Discharge Plan - Plan Referrals: Brenna Arthur MD [Primary Care Provider] - <Sandy Arrieta - Last Filed: 08/18/18 14:35> Hospitalist Progress Note - Encounter Date of Encounter: 08/18/18 - Exam Vitals: Temp Pulse Resp BP Pulse Ox 97.6 F 88 16 107/72 99 08/18/18 12:37 08/18/18 12:37 08/18/18 12:37 08/18/18 12:37 08/18/18 12:37 - Assessment and Plan (1) Hyperammonemia Current Visit: Yes Status: Acute (2) DVT prophylaxis Current Visit: No Status: Acute (3) Developmental delay, moderate Current Visit: Yes Status: Chronic (4) At risk for polypharmacy Current Visit: Yes Status: Acute (5) Anemia Current Visit: Yes Status: Acute (6) History of seizure Current Visit: Yes Status: Acute (7) Acute encephalopathy Current Visit: Yes Status: Acute (8) Fever Current Visit: Yes Status: Resolved - Time Spent with Patient Total time spent is greater than 50% in coordination of care (as documented) at patient's floor/unit and/or counseling patient: Internal Medicine: Result - Labs CBC & Chem 7: 08/17/18 09:43 08/16/18 04:59 - ABG Interpretation ABG results: PT/INR, D-dimer PT 13.3 Seconds (9.4-12.1) H 08/16/18 04:59 - Attending Attestation I examined this patient and my medical decision-making was reviewed with the Resident Physician Dr Pedro. I agree with the documented findings, disposition and treatment plan as described except to the extent set forth below. Mr Guaman is being observed for change in mental status awake, pleasant, limited hpi due to cognitive delay,no family at bedside. he needs redirect to answer questions. he follows commands. when discussed that he worked with PT he stated "look at my big muscles" and flexed arm muscle. When discussed rec for snf and rehab it is clear he doesn't fully understand what rehab is. SW updated and will be attempting to reach his mother/next of kin to get more info about his baseline understanding and decision making skills. gen- awake, appears stated age, nad cv- reg rate and rhythm, normal s1s2 lungs- ctabl normal resp effort on room air neuro- oriented to person, no place or situation, cn are grossly intact, follows commands to move all ext and no deficit noted Acute Encephalopathy,resolved as per baseline mentation obtained from longterm SW attempting to reach his mother suspected etiology polypharmacy with over sedation -appreciate psych input, decreased Haldol -appreciate neuro input- outpt neuro established fu and consider outpt ambulatory eeg MRDD/Mood Disorder/Behavioral disturbance- cont cogentin and meds as recommended by [facility] Seizure D/O- cont home seizure meds, cont home ativan Chronic ammonia elevation at baseline chronic anemia at baseline further dx and plan as noted by resident dispo is pending d/w family and pt re snf placement by JEFFERY
[2018-08-18] MEDS: *HR* LORazepam 1 MG TABLET PO SCH ×3 (08:40→20:39)
[2018-08-18] MEDS: levETIRAcetam 250 MG TABLET PO SCH ×2 (08:40→20:38)
[2018-08-18] MEDS: Lactulose Oral Soln 20 GM/30 ML UDC PO SCH ×3 (08:40→20:39)
[2018-08-18] MEDS: Topiramate 100 MG TABLET PO SCH ×2 (08:41→20:39)
--- NOTE | 2018-08-18 18:07 | Neurology Progress Note ---
Date of Encounter: 08/18/18 Time of Encounter: 18:05 Assessment and Plan (1) Seizure-like activity Current Visit: No Status: Acute No seizure activity since admission c/w emperic seizure tx plan as discussed above F/u with primary neurologist; if he does not have one he can see one of us if he wishes (2) Change in mental state Current Visit: Yes Status: Acute Patient appears improving in his mental status and he is comprehensive and follows simple commands. No evidence of focal neurological deficits although he is significantly Parkinsonian. not sure what his baseline neurological status was. From neurological perspective i would suggest no additional testing and please continue medical and psychiatric care. Will sign off at this time. Please call us if any questions. Qualifiers: Altered mental status type: somnolence Qualified Code(s): R40.0 - Somnolence Subjective Principal diagnosis: Altered mental status Interval history: Patient is seen and examined at the bedside at about 6:00pm. Patient is seen sitting in the chair comfortably eating. He is slow and bradykinetic but is able to eat using a fork in his right hand. He smiles and appears wide alert and awake. Conversation is difficult due to the fact he mumbles words due to severe Parkinsoonian features. He appears much more responsive and alert than yesterday. No focal weakness seen. Denies headaches. Objective - Constitutional Vitals: Temp Pulse Resp BP Pulse Ox 99.3 F 91 16 110/74 94 08/18/18 15:15 08/18/18 15:15 08/18/18 15:15 08/18/18 15:15 08/18/18 15:15 - Neurological Exam Sensorimotor examination: Present: other (Unble to assess due to altered mental status) Motor Examination: Present: grossly full strength in all extremities, other (No focal weakness noted. Bradykinetic and very rigid) Motor examination - right side: 5/5: deltoids, biceps, triceps, wrist flexion, wrist extension, operations administrative assistant, hip flexors, tibialis Anterior, quadriceps, toe extension (EHL), plantarflexion Motor examination - left side: 5/5: deltoids, biceps, triceps, wrist flexion, wrist extension, hip flexors, operations administrative assistant, quadriceps, tibialis Anterior, toe extension (EHL), plantarflexion Sensation intact: Present: intact (Grossly intact) Posture: Present: other (Rigit. Parkinsonian like) Reflex and gait examination: other (Gait not assessed) Reflexes: Biceps: 1+, Triceps: 1+, Brachioradialis: 1+, Patella: 1+, Achilles: 1+ Mental Status Examination: Present: awake, alert (Mumbles to questions unable to check orientation), opens eyes to voice, opens eyes to noxious stimulation, makes eye contact (Rarely. ), follows simple commands Cranial nerve examination: Present: PERRL, EOMI (Difficulty to assess), corneal reflexes brisk symmetrically, sensory to face intact, mastication intact, no facial asymmetry is present, no dysarthria (Significant dysarthria noted), hearing is intact symmetrically, soft palate elevates bilaterally upon phonation (Unable to assess), tongue protrudes midline (Unble to assess) Results - Laboratory Findings CBC and BMP: 08/17/18 09:43 08/16/18 04:59 Abnormal lab findings: Abnormal lab results RBC 3.93 M/mcL (4.19-5.50) L 08/17/18 09:43 Hgb 11.6 g/dL (12.9-16.9) L 08/17/18 09:43 Hct 36.3 % (37.5-50.1) L 08/17/18 09:43 MCHC 31.4 g/dL (31.6-35.5) L 08/16/18 04:59 RDW 14.6 % (11.5-14.5) H 08/17/18 09:43 Plt Count 136 K/mcL (140-400) L 08/16/18 04:59 PT 13.3 Seconds (9.4-12.1) H 08/16/18 04:59 Chloride 110 mEq/L (98-107) H 08/16/18 04:59 POC Glucose 133 mg/dL (70-99) H 08/17/18 11:22 AST 10 Units/L (13-39) L 08/16/18 04:59 77 mcmol/L (16-53) H 08/16/18 07:01 6.3 g/dL (6.4-8.9) L 08/16/18 04:59 Triglycerides 209 mg/dL (< 150) H 08/16/18 04:59 VLDL Cholesterol, Calc 42 mg/dL (< 31) H 08/16/18 04:59 14 mg/dL (40-59) L 08/16/18 04:59 9.6 (0-4.9) H 08/16/18 04:59 Salicylates < 2.5 mg/dL (15.0-30.0) L 08/15/18 11:08 Acetaminophen < 10 mcg/mL (10-20) L 08/15/18 11:08 U Benzodiazepines Scrn Positive ng/mL (Qscsex=758) H 08/15/18 11:45 Consult Discharge Plan - Plan Referrals: Brenna Arthur MD [Primary Care Provider] -
[2018-08-18] MEDS: Famotidine 20 MG TABLET PO SCH (20:39)
[2018-08-19 00:40] LABS: Valproate Free 8 ug/mL (7-23); Valproate Total 54 ug/mL (50-125)
[2018-08-19] MEDS: levETIRAcetam 250 MG TABLET PO SCH ×2 (07:59→20:39)
[2018-08-19] MEDS: Lactulose Oral Soln 20 GM/30 ML UDC PO SCH ×3 (07:59→20:41)
[2018-08-19] MEDS: Topiramate 100 MG TABLET PO SCH ×2 (08:00→20:40)
[2018-08-19] MEDS: *HR* LORazepam 1 MG TABLET PO SCH ×3 (08:00→20:41)
--- NOTE | 2018-08-19 09:43 | Discharge Summary ---
- NOTES TO OUTPATIENT PROVIDER Notes to Outpatient Provider: Patient admitted due to acute encephalopathy and reported fevers at the [facility]. There were no recorded fevers while inpatient no obvious signs of infection. Head CT, UA, blood culture, abdominal CT, cervical CT, chest x-ray were all unremarkable. Encephalopathy was likely secondary to polypharmacy. Neurology evaluated the patient. Psychiatry evaluated the patient and decreased Haldol to 5 mg b.i.d. PT/OT recommended SNF for rehab. Patient to be discharged to rehab facility per POA request. Valium and Ambien discontinued. Orders not resulted at time of discharge: Pending orders 08/15/18 11:16 Culture,Blood [BC] Stat 08/15/18 16:45 Valproate Total & Free Routine Date of Encounter: 08/19/18 Time of Encounter: 09:42 - Discharge Diagnosis (1) Acute encephalopathy Priority: Primary Status: Acute (2) Hyperammonemia Priority: Secondary Status: Acute (3) DVT prophylaxis Priority: Secondary Status: Acute (4) Developmental delay, moderate Priority: Secondary Status: Chronic (5) At risk for polypharmacy Priority: Secondary Status: Acute (6) Anemia Priority: Secondary Status: Acute Qualifiers: Anemia type: unspecified type Qualified Code(s): D64.9 - Anemia, unspecified (7) History of seizure Priority: Secondary Status: Acute (8) Fever Priority: Secondary Status: Resolved Qualifiers: Fever type: unspecified Qualified Code(s): R50.9 - Fever, unspecified Hospital course: Mr. Guaman is a 37 year old male with history of developmental delay, schizoaffective disorder, MRDDl, obesity who presented with a history of 3 days of fever that was reported by the caregiver and acute encephalopathy. The patient had recently had an an increase in is how little. He had a history of elevated pneumonia secondary to Depakote which had been discontinued and replaced with Keppra for seizures. He also had been reported to have frequent falls of the facility. Neurology and psychiatry were consulted to evaluate the patient. U/A unremarkable, blood culture no growth. CXR, Abd CT, cervical CT, head CT all unremarkable. UDS positive for benzo's which is on home at this. Acute encephalopathy was determined to be most likely secondary to polypharmacy. Neurology did not believe the patient to have neuroleptic malignant syndrome since he takes bromocriptine regularly so this is unlikely. There was no evidence of seizures. During admission the patient to not have any fevers and there were no signs of infection. The patient was noted to have anemia but this appeared to be his baseline and chronic in nature. He had an elevated ammonia level but it was also at his baseline and he was continued on his lactulose orally. Per psychiatry to continue home latuda, Haldol decanoate, Ambien, Cogentin, clomipramine, and medroxyprogesterone. Zoloft 100 Q a.m. and 50 Q HS. Topamax 100 Q a.m. and 200 Q HS. Decrease Haldol to 5 mg b.i.d. since his Haldol decano ate was increased from 100 mg to 150 mg and he gets this at a frequency of every 2 weeks. He is also to continue his home lactulose. PT/OT recommended the patient be discharged to SNF for rehab and the POA requested that he be transferred there. During admission the patient progress back to baseline. Social work set up for the patient be discharged to rehab. The medication adjustment made while in patient was decreasing his Haldol 5 mg b.i.d. from 10 mg. He had not received the Valium while inpatient. The patient was back to baseline. He is to follow up with his psychiatrist and primary care provider. He is also to follow up with his neurologist outpatient. Discharge discussed with: patient, nurse, social work - Time Spent with Patient Total time spent providing and/or coordinating discharge services: Time spent: Greater than 30 minutes - Discharge Medications Prescriptions: New Haloperidol [Haldol] 5 mg PO BID #60 tablet Continued Bromocriptine [Parlodel] 2.5 mg PO DAILY Cimetidine 200 mg PO BID Clomipramine HCl 50 mg PO HS Desitin (Zinc Oxide) [Desitin] 1 appl TP BID Docusate Sodium [Dok] 100 mg PO BID Hydrocortisone Valerate 1 appl TP BID Lurasidone HCl [Latuda] 80 mg PO QPM DiphenhydraMINE [Benadryl] 25 mg PO Q6HR PRN #20 capsule PRN Reason: Rash Lurasidone [Latuda] 40 mg PO QAM Lactulose [Enulose] 20 gm PO TID LevETIRAcetam [Keppra] 500 mg PO BID #90 tablet Acetaminophen [Non-Aspirin] 650 mg PO Q4H PRN PRN Reason: Fever LORazepam [Ativan] 1 mg PO TID Medroxyprogesterone Acetate 150 mg IM Q60D Sertraline [Zoloft] 100 mg PO QAM Sertraline [Zoloft] 50 mg PO HS Topiramate [Topamax] 100 mg PO QAM Topiramate [Topamax] 200 mg PO HS Benztropine [Cogentin] 1 mg PO BID Diazepam [Diastat Acudial] 1 each RC ONCE PRN PRN Reason: SEIZURE LONGER THAN 5 MIN Haloperidol Decanoate 1.5 ml IM Q2W Ibuprofen [Motrin Ib] 400 mg PO Q4H PRN PRN Reason: Pain Ketoconazole Shampoo [Nizoral Shampoo] 1 appl TP Q72H PRN PRN Reason: Rash levOCARNitine [Levocarnitine] 330 mg PO TID Loperamide [Imodium] 2 mg PO AD PRN PRN Reason: Diarrhea Magnesium Hydroxide [Milk of Magnesia] 30 ml PO DAILY PRN PRN Reason: NO BOWEL MOVEMENT X3 DAYS Discontinued diazePAM [Valium] 5 mg PO ONCE Haloperidol 10 mg PO BID Zolpidem [Ambien] 5 mg PO HS Home Medications: Bromocriptine [Parlodel] 2.5 mg PO DAILY 11/12/17 [History] Cimetidine 200 mg PO BID 11/12/17 [History] Clomipramine HCl 50 mg PO HS 11/12/17 [History] Desitin (Zinc Oxide) [Desitin] 1 appl TP BID 11/12/17 [History] DiphenhydraMINE [Benadryl] 25 mg PO Q6HR PRN #20 capsule 11/12/17 [Rx] Docusate Sodium [Dok] 100 mg PO BID 11/12/17 [History] Hydrocortisone Valerate 1 appl TP BID 11/12/17 [History] Lurasidone HCl [Latuda] 80 mg PO QPM 11/12/17 [History] Lactulose [Enulose] 20 gm PO TID 05/02/18 [History] Lurasidone [Latuda] 40 mg PO QAM 05/02/18 [History] LevETIRAcetam [Keppra] 500 mg PO BID #90 tablet 05/03/18 [Rx] Acetaminophen [Non-Aspirin] 650 mg PO Q4H PRN 08/15/18 [History] Benztropine [Cogentin] 1 mg PO BID 08/15/18 [History] Diazepam [Diastat Acudial] 1 each RC ONCE PRN 08/15/18 [History] Haloperidol Decanoate 1.5 ml IM Q2W 08/15/18 [History] Ibuprofen [Motrin Ib] 400 mg PO Q4H PRN 08/15/18 [History] Ketoconazole Shampoo [Nizoral Shampoo] 1 appl TP Q72H PRN 08/15/18 [History] LORazepam [Ativan] 1 mg PO TID 08/15/18 [History] Loperamide [Imodium] 2 mg PO AD PRN 08/15/18 [History] Magnesium Hydroxide [Milk of Magnesia] 30 ml PO DAILY PRN 08/15/18 [History] Medroxyprogesterone Acetate 150 mg IM Q60D 08/15/18 [History] Sertraline [Zoloft] 50 mg PO HS 08/15/18 [History] Sertraline [Zoloft] 100 mg PO QAM 08/15/18 [History] Topiramate [Topamax] 100 mg PO QAM 08/15/18 [History] Topiramate [Topamax] 200 mg PO HS 08/15/18 [History] levOCARNitine [Levocarnitine] 330 mg PO TID 08/15/18 [History] Haloperidol [Haldol] 5 mg PO BID #60 tablet 08/19/18 [Rx] Allergies/Adverse Reactions: Allergy/AdvReac Type Severity Reaction Status Date / Time Penicillins [PCN] Allergy Hives Verified 05/12/18 19:19 Date of admission: 08/16/18 16:58 Primary care physician: Brenna Arthur Consults: 08/15/18 13:42 Consult to Neurology [CONS] Stat Consulting Provider: Neurology [facility] Reason for Consult: somnolence, recent medication change Call Completed: No 08/15/18 17:22 Consult to Psychiatry [CONS] Routine Consulting Provider: Psychiatry [facility] Reason consult: Altered mental status Medication recommendation Time Notified: 17:22 Call Completed: Yes 08/16/18 15:25 Consult to Occupational Therapy [CONS] Routine Comment: Evaluate, develop and implement POC Reason for Consult: frequent falls Does patient have active BEDREST order?: No Is patient medically & hemodynamically stable?: Yes Consult to Physical Therapy [CONS] Routine Comment: Evaluate, develop and implement POC Reason for Consult: frequent falls Does patient have active BEDREST order?: No Is patient medically & hemodynamically stable?: Yes 08/17/18 15:29 Consult to [employer] [CONS] Routine Reason for SW Consult: OT recommending SNF - potential [facility] needs. [facility] (p[facility] [phone]. general production manager Gayle can be reached at p) [phone]. Next of Kin is toya mother Kaley (p) [phone] according to [facility]. Discharging clinician: Edison Anderson Anticipated date of discharge: 08/19/18 - Constitutional Vitals: Temp Pulse Resp BP Pulse Ox 98.0 F 99 16 111/72 95 08/19/18 06:30 08/19/18 06:30 08/19/18 06:30 08/19/18 06:30 08/19/18 06:30 General appearance: Present: A&O X 0 Exam: Gen.: Vitals noted. No acute distress. Alert HEENT:oropharynx clear, Normocephalic, atraumatic Cardiac: RRR, no murmur, +S1/S2 Pulmonary: CTA bilaterally, no wheezes, rales or rhonchi, equal chest expansion Abdomen: soft, nontender, Bowel sounds noted, no guarding MSK: no joint swelling noted Extremities: no BLE edema, nontender calf, no cyanosis or clubbing Neuro: alert, moves all extremities, no focal deficits Psych: Appropriate mood and behavior - Patient Status Disposition: Transfer Inpatient Rehab Fac Condition: Good - Discharge Instructions Follow Up With: Brenna Arthur MD [Primary Care Provider] - Additional Instructions: - Haldol decreased to 5 mg b.i.d. -Patient's Valium and Ambien discontinued. He does have Ativan on his medication list to continue. -He is to follow up with his psychiatrist Dr. Fountain with [facility], neurologist, primary care provider in 1 to 2 weeks. - Diet and Activity Activity: ambulate only with your walker Diet: advance to your usual diet
[2018-08-19] MEDS: Famotidine 20 MG TABLET PO SCH (20:39)
[2018-08-20] MEDS: *HR* LORazepam 1 MG TABLET PO SCH ×2 (09:45→15:03)
[2018-08-20] MEDS: Topiramate 100 MG TABLET PO SCH (09:46)
[2018-08-20] MEDS: levETIRAcetam 250 MG TABLET PO SCH (09:46)
[2018-08-20] MEDS: Lactulose Oral Soln 20 GM/30 ML UDC PO SCH ×2 (09:46→15:03)
[2018-08-20 10:46] LABS: Valproate % Free 15 % (5-18)
--- NOTE | 2018-08-20 13:21 | Internal Med Progress Note ---
<Edison Anderson - Last Filed: 08/20/18 13:51> Hospitalist Progress Note - Encounter Date of Encounter: 08/20/18 - Exam Vitals: Temp Pulse Resp BP Pulse Ox 98.6 F 107 16 93/57 95 08/20/18 10:37 08/20/18 10:37 08/20/18 10:37 08/20/18 10:37 08/20/18 10:37 - Assessment and Plan (1) Hyperammonemia Status: Acute (2) DVT prophylaxis Status: Acute (3) Developmental delay, moderate Status: Chronic (4) At risk for polypharmacy Status: Acute (5) Anemia Status: Acute (6) History of seizure Status: Acute (7) Acute encephalopathy Status: Acute (8) Fever Status: Resolved - Time Spent with Patient Total time spent is greater than 50% in coordination of care (as documented) at patient's floor/unit and/or counseling patient: Internal Medicine: Result - Labs CBC & Chem 7: 08/17/18 09:43 08/16/18 04:59 - ABG Interpretation ABG results: PT/INR, D-dimer PT 13.3 Seconds (9.4-12.1) H 08/16/18 04:59 Consult Discharge Plan - Plan Additional Instructions: - Haldol decreased to 5 mg b.i.d. -Patient's Valium and Ambien discontinued. He does have Ativan on his medication list to continue. -He is to follow up with his psychiatrist Dr. Fountain with [facility], neurologist, primary care provider in 1 to 2 weeks. Referrals: Brenna Arthur MD [Primary Care Provider] - Prescriptions: Haloperidol [Haldol] 5 mg PO BID #60 tablet - Attending Attestation I examined this patient and my medical decision-making was reviewed with the Resident Physician on 08/20/18. I agree with the documented findings, disposition and treatment plan as described except to the extent set forth below. Mr Guaman is currently admitted for acute encephalopathy which appears to have resolved. He had reported fever prior to admission but none recorded here. Meds adjusted and he appears to have improved (haldol decreased and Valium and Ambien stopped). He is now afebrile and ready for discharge to SNF. His exam is significant for baseline tremor. <Oneil Pedro Last Filed: 08/20/18 19:03> Hospitalist Progress Note - Encounter Date of Encounter: 08/20/18 Time of Encounter: 08:50 - Subjective Interval History: When seen today patient was resting comfortably in his bed. He was still unable to answer good number of my questions. He was a and O 1. Denied any abdominal pain, nausea, vomiting. Denied any chest pain or shortness of breath. Denied any fever. - Exam Vitals: Temp Pulse Resp BP Pulse Ox 98.6 F 107 16 93/57 95 08/20/18 10:37 08/20/18 10:37 08/20/18 10:37 08/20/18 10:37 08/20/18 10:37 Exam: Gen.: Vitals noted. No acute distress. Alert HEENT:oropharynx clear, Normocephalic, atraumatic Cardiac: RRR, no murmur, +S1/S2 Pulmonary: CTA bilaterally, no wheezes, rales or rhonchi, equal chest expansion Abdomen: soft, nontender, Bowel sounds noted, no guarding MSK: no joint swelling noted Extremities: no BLE edema, nontender calf, no cyanosis or clubbing Neuro: alert, moves all extremities, no focal deficits Psych: Appropriate mood and behavior - Assessment and Plan (1) Acute encephalopathy Status: Acute Assessment and Plan: acute encephalopathy -patient has baseline MRDD, behavioral issues. This is most likely due to polypharmacy for his psychiatric illness and behavioral issues. This is unlikely stroke as is age, medical history. No reports of seizure like activity. No evidence of infection. -U/A unremarkable -blood culture NTD -CXR, Abd CT, cervical CT, head CT all unremarkable -UDS positive for benzo's which is on home at this 08/17/18: blood levels of medications including topiramate and valproate were WNL. Speech therapy advanced patient to soft diet. Plan -neurology consulted, appreciate recommendations. They recommend that since the patient does show some muscle rigidity that would be concerning for NMS however he takes bromocriptine regularly so this is unlikely. Recommend to monitor. Recommend to continue Keppra 500 mg b.i.d. and topiramate. Also recommend Ativan should he have seizures. Recommend that he follow up with his neurologist outpatient as he may benefit from ambulatory EEG monitoring. -psychiatry consulted, appreciate recommendations. Per psychiatry to continue home latuda, and oral Haldol, Valium, Ambien, Cogentin, clomipramine, and medroxyprogesterone. Zoloft 100 Q a.m. and 50 Q HS. Topamax 100 Q a.m. and 200 Q HS. Decrease Haldol to 5 mg b.i.d. since his Haldol decanoate was increased from 100 mg to 150 mg and he gets this at a frequency of every 2 weeks. - F/U with PT/OT for recommendations. - IVF D5 at 75ml, Accu check q6h -C/W patient's nurse is going to contact facility to find out baseline mental status -Continue home lactulose oral and if he will not take oral been rectal suppository. Monitor bowel movement frequency. -Fall precautions -will continue psychiatric medications as per psychiatry recommendations except for Valium and Ambien will hold. - PT/OT recommends SNF placement. - patient accepted at [facility] and patient will d/c today. (2) At risk for polypharmacy Status: Acute Assessment and Plan: Patient has significant medication lists with high risk medications including anti-seizure, antipsychotics, benzos. -Psychiatry been consulted, appreciate recommendations. They recommend to decrease haldol to 5mg BID since his IV dose had been increased. Recommend to discontinue Depakote due to elevated ammonia level. (3) Anemia Status: Acute Assessment and Plan: Anemia -appears chronic and etiology. Patient is at his baseline Hgb 12 -no obvious active bleeding -will continue to monitor (4) Fever Status: Resolved Assessment and Plan: Fever -it was initially reported that patient at home had a fever. During hospital admission patient has not had a fever. -Afebrile, hemodynamically stable -WBC WNL -U/A unremarkable -blood culture NTD -CXR, Abd CT, cervical CT, head CT all unremarkable plan -there is no obvious source of infection and he is afebrile hemodynamically stable. Will hold off on antibiotics at this time as there is no indication. Will continue to monitor. (5) Developmental delay, moderate Status: Chronic Assessment and Plan: Patient has history of MRDD/ mood disorder, behavior disturbance. He is on multiple medications. -EKG showed QTC was acceptable for 48 -psychiatry consulted, appreciate recommendations. -Medications and plan as above (6) Hyperammonemia Status: Acute Assessment and Plan: Patient has chronic elevated ammonia level. He is at his baseline level. In the past elevated ammonia level was attributed to Depakot for which neurology recommended it be discontinued, however still listed on home medication list. -Ammonia 77, at baseline -continue home lactulose oral and if he will not take then switch to rectal suppository. -psychiatry and neurology recommends to discontinue Depakote due to elevated ammonia levels. (7) History of seizure Status: Acute Assessment and Plan: History of seizures -unknown last seizure -patient takes Keppra and Topamax -Depakote had been discontinued due to elevated ammonia level -neurology consulted, appreciate recommendations. They recommend that since the patient does show some muscle rigidity that would be concerning for NMS however he takes bromocriptine regularly so this is unlikely. Recommend to monitor. Recommend to continue Keppra 500 mg b.i.d. and topiramate. Also recommend Ativan should he have seizures. Recommend that he follow up with his neurologist outpatient as he may benefit from ambulatory EEG monitoring. -Will continue Keppra and topiramate per neurology recommendation (8) DVT prophylaxis Status: Acute Assessment and Plan: SCD fall risk - Time Spent with Patient Total time spent is greater than 50% in coordination of care (as documented) at patient's floor/unit and/or counseling patient: Internal Medicine: Result - Labs CBC & Chem 7: 08/17/18 09:43 08/16/18 04:59 - ABG Interpretation ABG results: PT/INR, D-dimer PT 13.3 Seconds (9.4-12.1) H 08/16/18 04:59 <Edison Anderson - Last Filed: 08/20/18 13:51> (5) Anemia Qualifiers: Anemia type: unspecified type Qualified Code(s): D64.9 - Anemia, unspecified (8) Fever Qualifiers: Fever type: unspecified Qualified Code(s): R50.9 - Fever, unspecified <Oneil Pedro - Last Filed: 08/20/18 19:03> (3) Anemia Qualifiers: Anemia type: unspecified type Qualified Code(s): D64.9 - Anemia, unspecified (4) Fever Qualifiers: Fever type: unspecified Qualified Code(s): R50.9 - Fever, unspecified
[2018-08-20 15:02] VITALS: BP 104/64
--- NOTE | 2018-08-20 16:56 | Physician Discharge Referral ---
ExtendedCare Referral Info Transfer To: [facility] Provider in Charge after Transfer: PCP Institutional Level of Care: Skilled - Diagnosis (1) Hyperammonemia Priority: Secondary Status: Acute (2) DVT prophylaxis Priority: Secondary Status: Acute (3) Developmental delay, moderate Priority: Secondary Status: Chronic (4) At risk for polypharmacy Priority: Secondary Status: Acute (5) Anemia Priority: Secondary Status: Acute (6) History of seizure Priority: Secondary Status: Acute (7) Acute encephalopathy Priority: Primary Status: Acute (8) Fever Priority: Secondary Status: Resolved Prognosis: Fair Aware of Diagnosis: Patient Aware of Prognosis: Patient - Transfer Medications Prescriptions: Haloperidol [Haldol] 5 mg PO BID #60 tablet Home Medications: Bromocriptine [Parlodel] 2.5 mg PO DAILY 11/12/17 [History] Cimetidine 200 mg PO BID 11/12/17 [History] Clomipramine HCl 50 mg PO HS 11/12/17 [History] Desitin (Zinc Oxide) [Desitin] 1 appl TP BID 11/12/17 [History] DiphenhydraMINE [Benadryl] 25 mg PO Q6HR PRN #20 capsule 11/12/17 [Rx] Docusate Sodium [Dok] 100 mg PO BID 11/12/17 [History] Hydrocortisone Valerate 1 appl TP BID 11/12/17 [History] Lurasidone HCl [Latuda] 80 mg PO QPM 11/12/17 [History] Lactulose [Enulose] 20 gm PO TID 05/02/18 [History] Lurasidone [Latuda] 40 mg PO QAM 05/02/18 [History] LevETIRAcetam [Keppra] 500 mg PO BID #90 tablet 05/03/18 [Rx] Acetaminophen [Non-Aspirin] 650 mg PO Q4H PRN 08/15/18 [History] Benztropine [Cogentin] 1 mg PO BID 08/15/18 [History] Diazepam [Diastat Acudial] 1 each RC ONCE PRN 08/15/18 [History] Haloperidol Decanoate 1.5 ml IM Q2W 08/15/18 [History] Ibuprofen [Motrin Ib] 400 mg PO Q4H PRN 08/15/18 [History] Ketoconazole Shampoo [Nizoral Shampoo] 1 appl TP Q72H PRN 08/15/18 [History] LORazepam [Ativan] 1 mg PO TID 08/15/18 [History] Loperamide [Imodium] 2 mg PO AD PRN 08/15/18 [History] Magnesium Hydroxide [Milk of Magnesia] 30 ml PO DAILY PRN 08/15/18 [History] Medroxyprogesterone Acetate 150 mg IM Q60D 08/15/18 [History] Sertraline [Zoloft] 50 mg PO HS 08/15/18 [History] Sertraline [Zoloft] 100 mg PO QAM 08/15/18 [History] Topiramate [Topamax] 100 mg PO QAM 08/15/18 [History] Topiramate [Topamax] 200 mg PO HS 08/15/18 [History] levOCARNitine [Levocarnitine] 330 mg PO TID 08/15/18 [History] Haloperidol [Haldol] 5 mg PO BID #60 tablet 08/19/18 [Rx] Allergies/Adverse Reactions: Allergy/AdvReac Type Severity Reaction Status Date / Time Penicillins [PCN] Allergy Hives Verified 05/12/18 19:19 - Respiratory Orders None Smoking Cessation: Smoking cessation has been advised. For more information, call the [place] Tobacco Quit Line at 8-602-OALX-NOW. - Ancillary Orders May use pressure relief devices daily prn, May consult with Dentist, Csw, Energy Conservation Specialist PRN - Advance Directives Code Status: Full Code - Mobility Orders Chair, Ambulate - Rehabiliation Orders Rehab Potential: Fair Rehab Orders: Evaluation for Physical Therapy, Evaluation for Occupational Therapy, Evaluation for Speech Therapy - Treatments Skin tear care topically daily PRN per policy, May check for fecal impaction rectally daily PRN, Fleet enema rectally every other day PRN cleansing purposes - Diet Orders Mechanical Soft CERTIFICATION: I certify that the transfer of the above named patient to an Extended Care Facility is necessary for the continuing treatment of the diagnosis listed. The above information is true and accurate reflection of patient's current condition. Confidential - Redisclosure prohibited without a patient's written consent.
== END 2018-08-20 18:55 | DRG 92 ==
LOC: EMEROOARM 10:23 → 3ANU 10:23 → SUATTDRO 14:38 → 3ANU 15:04 → SUATTDRO 08-16 16:58
PROVIDERS: ADMIT Internal Medicine Nephrology; ATTEND Internal Medicine

== ENCOUNTER 2020-07-27 22:36 | Inpatient (IN) ==
[2020-07-27] MEDS ORDERED: 0.9 % Sodium Chloride 1,000 ML IVC ONE (23:20)
[2020-07-28 00:19] LABS: Amphetamine Screen,Urine Negative ng/mL (Cutoff=1000); Barbiturate Screen,Urine Negative ng/mL (Cutoff=200); Benzodiazepines Screen,Urine Negative ng/mL (Cutoff=200); Cannabinoid Screen,Urine Negative ng/mL (Cutoff = 50); Cocaine Screen,Urine Negative ng/mL (Cutoff= 300); Opiate Screen,Urine Negative ng/mL (Cutoff=300); Phencyclidine Screen,Urine Negative ng/mL (Cutoff=25)
[2020-07-28 00:24] LABS: Amorphous Sediment,Urine Few per hpf (None-Few); Bacteria,Urine Few per hpf (None-Few); Basophils % 0.1 %; Bilirubin,Urine Negative (Negative); Blood,Urine Negative (Negative); Clarity,Urine Turbid (Clear); Color,Urine Yellow (Yellow); Eosinophils # 0.1 K/mcL (0.0-0.6); Eosinophils % 0.6 %; Glucose,Urine (UA) Normal (Normal); Hematocrit 41.3 % (37.5-50.1); Immature Granulocytes % 0.8 % (0-4); Ketones,Urine Trace mg/dL (Negative); Leukocyte Esterase,Urine Negative (Negative); Lymphocytes # 1.3 K/mcL (0.6-4.6); Lymphocytes % 12.8 %; Mean Corpuscular HGB Conc 33.9 g/dL (31.6-35.5); Mean Corpuscular Volume 88.4 fL (83.0-100.0); Mean Platelet Volume 10.7 fL (9.4-12.4); Monocytes # 1.3 K/mcL (0.0-1.3); Monocytes % 12.3 %; Mucus,Urine Many per lpf (None-Few); Neutrophils # 7.5 K/mcL (1.6-8.9); Nitrite,Urine Negative (Negative); PH,Urine 7.5 pH Units (5.0-8.0); Platelet Count 272 K/mcL (140-400); Protein,Urine 50 mg/dL (Neg-Trace); RBC,Urine 0-3 per hpf (0-3); Red Blood Count 4.67 M/mcL (4.19-5.50); Red Cell Distribution Width 12.9 % (11.5-14.5); Segmented Neutrophils % 73.4 %; Specific Gravity,Urine 1.029 (1.010-1.025); Squamous Epithelial Cell,Urine Few per hpf (None-Few); Urobilinogen,Urine Normal (Normal); White Blood Count 10.2 K/mcL (4.3-11.1)
[2020-07-28 00:28] LABS: Acetaminophen < 10 mcg/mL (10-20); BUN/Creatinine Ratio 15 (6-26); Blood Urea Nitrogen 12 mg/dL (6-20); Calcium 9.9 mg/dL (8.6-10.3); Carbon Dioxide 24 mEq/L (23-29); Chloride 104 mEq/L (98-107); Chol/HDL Ratio 3.3 (0-4.9); Cholesterol 145 mg/dL (< 200); Ethanol < 10 mg/dL (Less than 10); Glucose 115 mg/dL (70-105); HDL Cholesterol 44 mg/dL (40-59); LDL Cholesterol,Calculated 83 mg/dL (< 100); Magnesium 1.9 mg/dL (1.6-2.6); Osmolality,Calculated 285 (280-300); Potassium 3.9 mEq/L (3.5-5.1); Salicylate < 2.5 mg/dL (15.0-30.0); Sodium 137 mEq/L (136-145); Triglycerides 92 mg/dL (< 150); eGFR For African Americans > 60 (> 60); eGFR For Non-African Americans > 60 (> 60)
[2020-07-28 01:01] LABS: Estimated Average Glucose 114 mg/dl; Hemoglobin A1C 5.6 %
[2020-07-28] MEDS ORDERED: Haloperidol Lactate 5 MG/ML VIAL IVP ONE (02:35)
[2020-07-28] MEDS ORDERED: 0.9 % Sodium Chloride 1,000 ML IVC ONE (03:50)
[2020-07-28] MEDS ORDERED: levETIRAcetam 1,000 MG in 0.9 % Sodium Chloride 100 ML IVPB ONE (04:00)
[2020-07-28 04:27] LABS: Creatine Kinase 92 Units/L (30-223)
[2020-07-28] MEDS ORDERED: *HR* LORazepam 2 MG/ML VIAL IVP ONE (05:01)
[2020-07-28] MEDS ORDERED: *HR* LORazepam 2 MG/ML VIAL ONE (05:03)
[2020-07-28] MEDS ORDERED: Naloxone 0.4 MG/ML INJ IVP PRN (05:31)
[2020-07-28] MEDS ORDERED: DIAZEPAM RC PRN (06:26)
[2020-07-28] MEDS ORDERED: HALOPERIDOL DECANOATE 100 MG/ML IM SCH (06:30)
[2020-07-28] MEDS ORDERED: Ibuprofen 400 MG TABLET PO PRN (06:30)
[2020-07-28] MEDS: *HR* Heparin 5,000 UNIT/ML VIAL SQ SCH ×2 (06:42→15:18)
[2020-07-28] MEDS: 0.9 % Sodium Chloride 1,000 ML IVC SCH ×2 (06:52→17:19)
[2020-07-28] MEDS ORDERED: amLODIPine 5 MG TABLET PO SCH (09:00)
[2020-07-28] MEDS ORDERED: LACTULOSE 20 GM PO SCH (09:00)
[2020-07-28] MEDS: hydrOXYzine pamoate 25 MG CAPSULE PO SCH ×3 (09:00→20:38)
[2020-07-28] MEDS: FLUoxetine 20 MG CAPSULE PO SCH (09:02)
[2020-07-28] MEDS: Famotidine 20 MG TABLET PO SCH ×2 (09:05→15:17)
[2020-07-28] MEDS: haloperidoL 5 MG TABLET PO SCH ×2 (09:06→20:37)
[2020-07-28] MEDS: Multivit/Ca/Min/Fe/FA 1 TAB TABLET PO SCH (09:18)
[2020-07-28] MEDS: Lactulose Oral Soln 20 GM/30 ML UDC PO SCH ×3 (09:22→23:27)
[2020-07-28] MEDS: Desitin (Zinc Oxide) 56 GM TUBE TP SCH (14:39)
[2020-07-28] MEDS ORDERED: diazePAM 10 MG/2 ML SYRINGE IVP PRN (15:34)
[2020-07-28] MEDS: QUEtiapine Fumarate 300 MG TABLET PO SCH (20:37)
[2020-07-28] MEDS ORDERED: *HR* LORazepam 2 MG/ML VIAL IM ONE (20:42)
[2020-07-28] MEDS ORDERED: Haloperidol Lactate 5 MG/ML VIAL IM ONE (20:43)
[2020-07-28] MEDS ORDERED: levETIRAcetam 250 MG TABLET PO SCH (21:00)
[2020-07-28] MEDS ORDERED: *HR* LORazepam 2 MG/ML VIAL IM STA (21:19)
[2020-07-28] MEDS: Dexmedetomidine HCl 400 MCG/100 ML MLS IVC SCH (21:54)
[2020-07-29] MEDS: Desitin (Zinc Oxide) 56 GM TUBE TP SCH ×3 (00:30→20:33)
[2020-07-29] MEDS: 0.9 % Sodium Chloride 1,000 ML IVC SCH ×3 (00:34→20:31)
[2020-07-29] MEDS: *HR* Heparin 5,000 UNIT/ML VIAL SQ SCH ×3 (00:34→17:48)
[2020-07-29 01:36] LABS: Hematocrit 36.9 % (37.5-50.1); Mean Corpuscular Hemoglobin 29.6 pg (28.0-33.3); Mean Corpuscular Volume 92.5 fL (83.0-100.0); Platelet Count 226 K/mcL (140-400); Red Blood Count 3.99 M/mcL (4.19-5.50); Red Cell Distribution Width 13.2 % (11.5-14.5); White Blood Count 8.2 K/mcL (4.3-11.1)
[2020-07-29 01:39] LABS: Hemoglobin 11.8 g/dL (12.9-16.9)
[2020-07-29 01:54] LABS: BUN/Creatinine Ratio 14 (6-26); Blood Urea Nitrogen 10 mg/dL (6-20); Calcium 8.9 mg/dL (8.6-10.3); Carbon Dioxide 20 mEq/L (23-29); Chloride 111 mEq/L (98-107); Glucose 93 mg/dL (70-105); Osmolality,Calculated 283 (280-300); Phosphorous 3.4 mg/dL (2.7-4.5); Potassium 3.9 mEq/L (3.5-5.1); Sodium 137 mEq/L (136-145); eGFR For African Americans > 60 (> 60); eGFR For Non-African Americans > 60 (> 60)
[2020-07-29] MEDS: Dexmedetomidine HCl 400 MCG/100 ML MLS IVC SCH ×5 (04:14→21:47)
[2020-07-29] MEDS ORDERED: Haloperidol Lactate 5 MG/ML VIAL IM STA (07:54)
[2020-07-29] MEDS ORDERED: *HR* LORazepam 2 MG/ML VIAL IM STA (07:54)
[2020-07-29] MEDS ORDERED: Haloperidol Lactate 5 MG/ML VIAL IVP ONE (08:26)
[2020-07-29] MEDS ORDERED: Haloperidol Lactate 5 MG/ML VIAL IM ONE (08:26)
[2020-07-29] MEDS: Famotidine 20 MG TABLET PO SCH (08:55)
[2020-07-29] MEDS: Multivit/Ca/Min/Fe/FA 1 TAB TABLET PO SCH (08:55)
[2020-07-29] MEDS: hydrOXYzine pamoate 25 MG CAPSULE PO SCH ×3 (08:55→20:33)
[2020-07-29] MEDS: FLUoxetine 20 MG CAPSULE PO SCH (08:55)
[2020-07-29 09:58] LABS: Hemoglobin 12.4 g/dL (12.9-16.9)
[2020-07-29] MEDS: levETIRAcetam 750 MG in 0.9 % Sodium Chloride 100 ML IVPB SCH ×2 (10:26→20:37)
[2020-07-29] MEDS: *HR* LORazepam 2 MG/ML VIAL IM PRN ×3 (13:34→21:37)
[2020-07-29] MEDS: Haloperidol Lactate 5 MG/ML VIAL IM SCH ×3 (13:34→21:37)
[2020-07-29] MEDS ORDERED: Dextrose Gel 15 GM/37.5 ML TUBE PO PRN ×2 (19:42)
[2020-07-29] MEDS ORDERED: D5% in Water 1,000 ML IVC PRN (19:42)
[2020-07-29] MEDS ORDERED: *HR* Dextrose 50 % in Water (Vial) 50 ML VIAL IVP PRN (19:42)
[2020-07-29] MEDS: QUEtiapine Fumarate 300 MG TABLET PO SCH (20:33)
[2020-07-30] MEDS: Dexmedetomidine HCl 400 MCG/100 ML MLS IVC SCH ×7 (00:51→22:49)
[2020-07-30] MEDS: *HR* LORazepam 2 MG/ML VIAL IM PRN ×6 (01:32→22:59)
[2020-07-30] MEDS: Haloperidol Lactate 5 MG/ML VIAL IM SCH ×7 (01:33→20:01)
[2020-07-30] MEDS: *HR* Heparin 5,000 UNIT/ML VIAL SQ SCH ×2 (05:13→18:16)
[2020-07-30] MEDS: 0.9 % Sodium Chloride 1,000 ML IVC SCH ×2 (05:15→15:24)
[2020-07-30] MEDS: Pantoprazole 40 MG VIAL IVP SCH (08:29)
[2020-07-30] MEDS: Desitin (Zinc Oxide) 56 GM TUBE TP SCH ×2 (09:10→20:54)
[2020-07-30] MEDS: levETIRAcetam 750 MG in 0.9 % Sodium Chloride 100 ML IVPB SCH ×2 (09:39→20:01)
[2020-07-30] MEDS: hydrOXYzine pamoate 25 MG CAPSULE PO SCH ×3 (09:40→20:55)
[2020-07-30] MEDS: Multivit/Ca/Min/Fe/FA 1 TAB TABLET PO SCH (09:40)
[2020-07-30] MEDS: FLUoxetine 20 MG CAPSULE PO SCH (09:40)
[2020-07-30] MEDS ORDERED: Haloperidol Lactate 5 MG/ML VIAL IM STA (10:06)
[2020-07-30] MEDS ORDERED: Haloperidol Lactate 5 MG/ML VIAL IM PRN (13:30)
[2020-07-30] MEDS: QUEtiapine Fumarate 300 MG TABLET PO SCH (20:55)
[2020-07-31] MEDS: Haloperidol Lactate 5 MG/ML VIAL IM SCH ×6 (00:42→20:50)
[2020-07-31] MEDS: 0.9 % Sodium Chloride 1,000 ML IVC SCH ×3 (00:46→16:26)
[2020-07-31] MEDS: Dexmedetomidine HCl 400 MCG/100 ML MLS IVC SCH ×5 (01:56→23:32)
[2020-07-31] MEDS: *HR* LORazepam 2 MG/ML VIAL IM PRN ×3 (03:02→16:44)
[2020-07-31] MEDS: *HR* Heparin 5,000 UNIT/ML VIAL SQ SCH ×2 (04:47→16:20)
[2020-07-31] MEDS: Desitin (Zinc Oxide) 56 GM TUBE TP SCH ×2 (07:59→23:23)
[2020-07-31] MEDS: levETIRAcetam 750 MG in 0.9 % Sodium Chloride 100 ML IVPB SCH ×2 (08:00→20:54)
[2020-07-31] MEDS: Pantoprazole 40 MG VIAL IVP SCH (08:01)
[2020-07-31] MEDS: FLUoxetine 20 MG CAPSULE PO SCH (08:02)
[2020-07-31] MEDS: Multivit/Ca/Min/Fe/FA 1 TAB TABLET PO SCH (08:02)
[2020-07-31] MEDS: hydrOXYzine pamoate 25 MG CAPSULE PO SCH ×2 (08:02→14:10)
[2020-07-31] MEDS ORDERED: PROPRANOLOL HCL 40 MG PO SCH (15:00)
[2020-07-31] MEDS: *HR* LORazepam 2 MG/ML VIAL IM SCH ×2 (18:38→20:53)
[2020-07-31] MEDS ORDERED: NON-FORMULARY MEDICATION 1 EACH EACH (Quetiapine Fumarate [Seroquel] 50 MG Tablet) PO SCH (21:00)
[2020-08-01] MEDS: *HR* LORazepam 2 MG/ML VIAL IM SCH ×4 (01:08→12:11)
[2020-08-01] MEDS: Haloperidol Lactate 5 MG/ML VIAL IM SCH ×7 (01:09→23:59)
[2020-08-01] MEDS: Dexmedetomidine HCl 400 MCG/100 ML MLS IVC SCH ×4 (02:37→20:48)
[2020-08-01] MEDS: *HR* Heparin 5,000 UNIT/ML VIAL SQ SCH ×2 (05:06→16:12)
[2020-08-01] MEDS: FLUoxetine 20 MG CAPSULE PO SCH (08:11)
[2020-08-01] MEDS: Pantoprazole 40 MG VIAL IVP SCH (08:11)
[2020-08-01] MEDS: Multivit/Ca/Min/Fe/FA 1 TAB TABLET PO SCH (08:42)
[2020-08-01] MEDS: Desitin (Zinc Oxide) 56 GM TUBE TP SCH ×2 (08:43→20:49)
[2020-08-01] MEDS: levETIRAcetam 750 MG in 0.9 % Sodium Chloride 100 ML IVPB SCH ×2 (08:45→20:47)
[2020-08-01] MEDS ORDERED: AMLODIPINE BESYLATE 2.5 MG PO SCH (09:00)
[2020-08-01] MEDS: 0.9 % Sodium Chloride 1,000 ML IVC SCH ×3 (10:19→20:47)
[2020-08-01] MEDS: Saline Nasal Spray 44 ML BOTTLE NS SCH ×4 (14:05→23:59)
[2020-08-01 15:06] LABS: Hematocrit 40.7 % (37.5-50.1); Hemoglobin 13.8 g/dL (12.9-16.9); Mean Corpuscular HGB Conc 33.9 g/dL (31.6-35.5); Mean Corpuscular Hemoglobin 30.3 pg (28.0-33.3); Mean Corpuscular Volume 89.5 fL (83.0-100.0); Mean Platelet Volume 11.2 fL (9.4-12.4); Platelet Count 215 K/mcL (140-400); Red Blood Count 4.55 M/mcL (4.19-5.50); White Blood Count 9.1 K/mcL (4.3-11.1)
[2020-08-01 15:18] LABS: BUN/Creatinine Ratio 9 (6-26); Blood Urea Nitrogen 7 mg/dL (6-20); Calcium 8.9 mg/dL (8.6-10.3); Carbon Dioxide 20 mEq/L (23-29); Chloride 109 mEq/L (98-107); Glucose 106 mg/dL (70-105); Magnesium 1.7 mg/dL (1.6-2.6); Osmolality,Calculated 286 (280-300); Phosphorous 3.7 mg/dL (2.7-4.5); Potassium 3.5 mEq/L (3.5-5.1); Sodium 139 mEq/L (136-145); eGFR For African Americans > 60 (> 60); eGFR For Non-African Americans > 60 (> 60)
[2020-08-01] MEDS: Artificial Tears SOLN 15 ML BOTTLE BOTH EYES SCH ×2 (16:10→20:45)
[2020-08-01] MEDS: *HR* LORazepam 2 MG/ML VIAL IM PRN ×2 (16:11→20:45)
[2020-08-02] MEDS: Dexmedetomidine HCl 400 MCG/100 ML MLS IVC SCH ×4 (00:07→10:14)
[2020-08-02] MEDS: *HR* LORazepam 2 MG/ML VIAL IM PRN ×3 (01:06→09:44)
[2020-08-02] MEDS: Saline Nasal Spray 44 ML BOTTLE NS SCH ×5 (04:26→20:42)
[2020-08-02] MEDS: Haloperidol Lactate 5 MG/ML VIAL IM SCH ×6 (04:26→23:48)
[2020-08-02] MEDS: *HR* Heparin 5,000 UNIT/ML VIAL SQ SCH ×2 (04:26→17:16)
[2020-08-02] MEDS: Artificial Tears SOLN 15 ML BOTTLE BOTH EYES SCH ×2 (08:46→20:42)
[2020-08-02] MEDS: Desitin (Zinc Oxide) 56 GM TUBE TP SCH ×2 (08:47→20:43)
[2020-08-02] MEDS: Pantoprazole 40 MG VIAL IVP SCH (08:52)
[2020-08-02] MEDS: levETIRAcetam 750 MG in 0.9 % Sodium Chloride 100 ML IVPB SCH ×2 (08:52→20:34)
[2020-08-02 10:23] LABS: Hematocrit 40.8 % (37.5-50.1); Hemoglobin 13.5 g/dL (12.9-16.9); Mean Corpuscular HGB Conc 33.1 g/dL (31.6-35.5); Mean Corpuscular Hemoglobin 29.3 pg (28.0-33.3); Mean Corpuscular Volume 88.7 fL (83.0-100.0); Platelet Count 222 K/mcL (140-400)
[2020-08-02] MEDS: FLUoxetine 20 MG CAPSULE PO SCH (11:01)
[2020-08-02] MEDS: Multivit/Ca/Min/Fe/FA 1 TAB TABLET PO SCH (11:20)
[2020-08-02] MEDS ORDERED: diazePAM 10 MG/2 ML SYRINGE IVP PRN (11:27)
[2020-08-02] MEDS ORDERED: *HR* LORazepam 2 MG/ML VIAL IM PRN (11:28)
[2020-08-02 12:03] LABS: Blood Urea Nitrogen 6 mg/dL (6-20); Calcium 8.8 mg/dL (8.6-10.3); Carbon Dioxide 20 mEq/L (23-29); Chloride 111 mEq/L (98-107); Glucose 109 mg/dL (70-105); Magnesium 2.1 mg/dL (1.6-2.6); Osmolality,Calculated 282 (280-300); Phosphorous 3.9 mg/dL (2.7-4.5); Potassium 5.1 mEq/L (3.5-5.1); Sodium 137 mEq/L (136-145)
[2020-08-02 12:18] LABS: BUN/Creatinine Ratio 7 (6-26); eGFR For African Americans > 60 (> 60); eGFR For Non-African Americans > 60 (> 60)
[2020-08-02] MEDS: *HR* LORazepam 2 MG/ML VIAL IVP SCH ×2 (15:40→21:51)
[2020-08-02] MEDS: 0.9 % Sodium Chloride 1,000 ML IVC SCH (22:21)
[2020-08-03] MEDS: Saline Nasal Spray 44 ML BOTTLE NS SCH ×5 (00:08→16:30)
[2020-08-03] MEDS: Haloperidol Lactate 5 MG/ML VIAL IM SCH ×2 (03:38→20:48)
[2020-08-03] MEDS: *HR* LORazepam 2 MG/ML VIAL IVP SCH ×4 (03:39→17:50)
[2020-08-03] MEDS: *HR* Heparin 5,000 UNIT/ML VIAL SQ SCH ×2 (05:28→18:29)
[2020-08-03] MEDS ORDERED: Haloperidol Decanoate 50 MG/ML VIAL IM SCH (07:45)
[2020-08-03] MEDS: Pantoprazole 40 MG VIAL IVP SCH (07:52)
[2020-08-03] MEDS: FLUoxetine 20 MG CAPSULE PO SCH (07:52)
[2020-08-03] MEDS: Artificial Tears SOLN 15 ML BOTTLE BOTH EYES SCH (07:54)
[2020-08-03] MEDS: Multivit/Ca/Min/Fe/FA 1 TAB TABLET PO SCH (08:00)
[2020-08-03] MEDS: QUEtiapine Fumarate 100 MG TABLET PO SCH ×3 (08:44→20:48)
[2020-08-03] MEDS: Desitin (Zinc Oxide) 56 GM TUBE TP SCH (10:20)
[2020-08-03] MEDS ORDERED: haloperidoL 5 MG TABLET PO SCH (11:15)
[2020-08-03] MEDS ORDERED: Ondansetron ODT 4 MG TAB.RAPDIS SL PRN (11:39)
[2020-08-03] MEDS ORDERED: *HR* LORazepam 1 MG TABLET PO SCH (12:00)
[2020-08-03] MEDS ORDERED: *HR* Metoprolol 5 MG/5 ML VIAL IVP PRN (15:50)
[2020-08-03] MEDS ORDERED: Isovue-370 500 ML BOTTLE IVP ONE ×2 (16:58→19:07)
[2020-08-03] MEDS ORDERED: *HR* Heparin 5,000 UNIT/ML VIAL IVP ONE (23:10)
[2020-08-03] MEDS ORDERED: *HR* Heparin 5,000 UNIT/ML VIAL IVP PRN (23:10)
[2020-08-04 00:03] LABS: Hematocrit 39.3 % (37.5-50.1); Hemoglobin 12.8 g/dL (12.9-16.9); Mean Corpuscular HGB Conc 32.6 g/dL (31.6-35.5); Mean Corpuscular Hemoglobin 29.4 pg (28.0-33.3); Mean Corpuscular Volume 90.3 fL (83.0-100.0); Mean Platelet Volume 11.3 fL (9.4-12.4); Platelet Count 238 K/mcL (140-400); Red Blood Count 4.35 M/mcL (4.19-5.50); Red Cell Distribution Width 13.3 % (11.5-14.5); White Blood Count 8.3 K/mcL (4.3-11.1)
[2020-08-04 00:11] LABS: INR 1.3; Prothrombin Time 14.6 Seconds (9.4-12.1)
[2020-08-04 00:12] LABS: Heparin anti-factor XA UFH < 0.04 IU/mL (0.30-0.70)
[2020-08-04] MEDS: Heparin 25,000UNIT/250ML 1/2NS 25,000 UNIT/250 ML IV.SOLN IVC SCH ×2 (00:34→12:57)
[2020-08-04] MEDS: 0.9 % Sodium Chloride 1,000 ML IVC SCH ×3 (00:35→22:14)
[2020-08-04] MEDS: *HR* LORazepam 2 MG/ML VIAL IVP SCH ×4 (00:37→17:49)
[2020-08-04] MEDS: Saline Nasal Spray 44 ML BOTTLE NS SCH ×7 (00:49→20:19)
[2020-08-04] MEDS: Desitin (Zinc Oxide) 56 GM TUBE TP SCH ×3 (00:50→20:19)
[2020-08-04] MEDS: Artificial Tears SOLN 15 ML BOTTLE BOTH EYES SCH ×3 (00:50→20:19)
[2020-08-04] MEDS: Dexmedetomidine HCl 400 MCG/100 ML MLS IVC SCH (04:17)
[2020-08-04 06:33] LABS: Basophils % 0.4 %; Eosinophils # 0.2 K/mcL (0.0-0.6); Eosinophils % 2.1 %; Hematocrit 38.9 % (37.5-50.1); Hemoglobin 12.8 g/dL (12.9-16.9); Immature Granulocytes % 0.3 % (0-4); Lymphocytes # 2.2 K/mcL (0.6-4.6); Lymphocytes % 31.3 %; Mean Corpuscular HGB Conc 32.9 g/dL (31.6-35.5); Mean Corpuscular Hemoglobin 30.1 pg (28.0-33.3); Mean Corpuscular Volume 91.5 fL (83.0-100.0); Mean Platelet Volume 11.5 fL (9.4-12.4); Monocytes # 0.7 K/mcL (0.0-1.3); Monocytes % 10.3 %; Neutrophils # 3.9 K/mcL (1.6-8.9); Platelet Count 206 K/mcL (140-400); Red Blood Count 4.25 M/mcL (4.19-5.50); Red Cell Distribution Width 13.3 % (11.5-14.5); Segmented Neutrophils % 55.6 %; White Blood Count 7.1 K/mcL (4.3-11.1)
[2020-08-04 07:02] LABS: BUN/Creatinine Ratio 6 (6-26); Blood Urea Nitrogen 5 mg/dL (6-20); Carbon Dioxide 20 mEq/L (23-29); Chloride 111 mEq/L (98-107); Glucose 90 mg/dL (70-105); Osmolality,Calculated 287 (280-300); Potassium 3.6 mEq/L (3.5-5.1); Sodium 140 mEq/L (136-145); eGFR For African Americans > 60 (> 60); eGFR For Non-African Americans > 60 (> 60)
[2020-08-04] MEDS: *HR* Heparin 5,000 UNIT/ML VIAL IVP PRN (07:50)
[2020-08-04] MEDS: FLUoxetine 20 MG CAPSULE PO SCH (08:11)
[2020-08-04] MEDS: QUEtiapine Fumarate 100 MG TABLET PO SCH ×3 (08:11→20:18)
[2020-08-04] MEDS: Multivit/Ca/Min/Fe/FA 1 TAB TABLET PO SCH (08:11)
[2020-08-04] MEDS: Haloperidol Lactate 5 MG/ML VIAL IM SCH ×2 (08:45→20:16)
[2020-08-04] MEDS: Pantoprazole 40 MG VIAL IVP SCH (10:51)
[2020-08-04 13:47] LABS: Adenovirus F 40/41 PCR Not detected (Not detect); Astrovirus PCR Not detected (Not detect); C.difficile Toxin A/B Gene PCR Not detected (Not detect); Campylobacter by PCR Not detected (Not detect); Cryptosporidium by PCR Not detected (Not detect); Cyclospora cayetanensis PCR Not detected (Not detect); E. coli O157 by PCR Not detected (Not detect); Entamoeba histolytica PCR Not detected (Not detect); Enteroaggregative E.coli(EAEC) Not detected (Not detect); Enteropathogenic E.coli(EPEC) Not detected (Not detect); Enterotoxigenic E.coli (ETEC) Not detected (Not detect); Giardia lamblia PCR Not detected (Not detect); Norovirus GI/GII PCR Not detected (Not detect); Plesiomonas shigelloides PCR Not detected (Not detect); Rotavirus A PCR Not detected (Not detect); Salmonella PCR Not detected (Not detect); Sapovirus PCR Not detected (Not detect); Shig/EnteroinvasiveE coli EIEC Not detected (Not detect); Shigalike tox-prod E coli STEC Not detected (Not detect); Vibrio PCR Not detected (Not detect); Vibrio cholerae PCR Not detected (Not detect); Yersinia enterocolitica PCR Not detected (Not detect)
[2020-08-04] MEDS ORDERED: *HR* LORazepam 2 MG/ML VIAL IM STA (23:55)
[2020-08-05] MEDS: *HR* LORazepam 2 MG/ML VIAL IVP SCH ×5 (00:53→22:24)
[2020-08-05] MEDS: Saline Nasal Spray 44 ML BOTTLE NS SCH ×6 (01:51→19:42)
[2020-08-05] MEDS: Dexmedetomidine HCl 400 MCG/100 ML MLS IVC SCH (01:53)
[2020-08-05 02:41] LABS: Basophils % 0.5 %; Eosinophils # 0.2 K/mcL (0.0-0.6); Hemoglobin 12.2 g/dL (12.9-16.9); Immature Granulocytes % 0.6 % (0-4); Lymphocytes # 2.9 K/mcL (0.6-4.6); Lymphocytes % 33.5 %; Mean Corpuscular HGB Conc 32.1 g/dL (31.6-35.5); Mean Corpuscular Hemoglobin 29.3 pg (28.0-33.3); Mean Corpuscular Volume 91.1 fL (83.0-100.0); Mean Platelet Volume 11.5 fL (9.4-12.4); Monocytes # 0.9 K/mcL (0.0-1.3); Monocytes % 10.3 %; Neutrophils # 4.5 K/mcL (1.6-8.9); Platelet Count 230 K/mcL (140-400); Red Blood Count 4.17 M/mcL (4.19-5.50); Red Cell Distribution Width 13.2 % (11.5-14.5); Segmented Neutrophils % 53.1 %; White Blood Count 8.5 K/mcL (4.3-11.1)
[2020-08-05 02:58] LABS: BUN/Creatinine Ratio 9 (6-26); Blood Urea Nitrogen 7 mg/dL (6-20); Calcium 9.2 mg/dL (8.6-10.3); Carbon Dioxide 21 mEq/L (23-29); Chloride 110 mEq/L (98-107); Glucose 80 mg/dL (70-105); Osmolality,Calculated 285 (280-300); Potassium 3.8 mEq/L (3.5-5.1); Sodium 139 mEq/L (136-145); eGFR For African Americans > 60 (> 60); eGFR For Non-African Americans > 60 (> 60)
[2020-08-05] MEDS: Haloperidol Lactate 5 MG/ML VIAL IM SCH ×2 (08:54→19:41)
[2020-08-05] MEDS: Haloperidol Lactate 5 MG/ML VIAL IM PRN (08:54)
[2020-08-05] MEDS: Artificial Tears SOLN 15 ML BOTTLE BOTH EYES SCH ×2 (08:55→19:43)
[2020-08-05] MEDS: Heparin 25,000UNIT/250ML 1/2NS 25,000 UNIT/250 ML IV.SOLN IVC SCH (08:58)
[2020-08-05] MEDS: Desitin (Zinc Oxide) 56 GM TUBE TP SCH ×2 (09:51→19:43)
[2020-08-05] MEDS: Pantoprazole 40 MG VIAL IVP SCH (09:53)
[2020-08-05] MEDS: Multivit/Ca/Min/Fe/FA 1 TAB TABLET PO SCH (09:54)
[2020-08-05] MEDS: FLUoxetine 20 MG CAPSULE PO SCH (09:54)
[2020-08-05] MEDS: QUEtiapine Fumarate 100 MG TABLET PO SCH ×3 (09:54→19:41)
[2020-08-05] MEDS: 0.9 % Sodium Chloride 1,000 ML IVC SCH ×3 (17:52→21:08)
[2020-08-06] MEDS: Dexmedetomidine HCl 400 MCG/100 ML MLS IVC SCH ×2 (00:28→05:34)
[2020-08-06 01:48] LABS: Basophils % 0.6 %; Eosinophils # 0.1 K/mcL (0.0-0.6); Eosinophils % 1.9 %; Hematocrit 42.6 % (37.5-50.1); Hemoglobin 13.5 g/dL (12.9-16.9); Lymphocytes # 2.6 K/mcL (0.6-4.6); Mean Corpuscular HGB Conc 31.7 g/dL (31.6-35.5); Mean Corpuscular Hemoglobin 29.6 pg (28.0-33.3); Mean Corpuscular Volume 93.4 fL (83.0-100.0); Mean Platelet Volume 11.2 fL (9.4-12.4); Monocytes # 0.7 K/mcL (0.0-1.3); Monocytes % 10.3 %; Neutrophils # 3.3 K/mcL (1.6-8.9); Platelet Count 223 K/mcL (140-400); Red Blood Count 4.56 M/mcL (4.19-5.50); Red Cell Distribution Width 13.4 % (11.5-14.5); Segmented Neutrophils % 48.2 %; White Blood Count 6.9 K/mcL (4.3-11.1)
[2020-08-06 01:53] LABS: BUN/Creatinine Ratio 8 (6-26); Blood Urea Nitrogen 6 mg/dL (6-20); Calcium 9.2 mg/dL (8.6-10.3); Carbon Dioxide 19 mEq/L (23-29); Chloride 110 mEq/L (98-107); Glucose 89 mg/dL (70-105); Magnesium 1.6 mg/dL (1.6-2.6); Osmolality,Calculated 289 (280-300); Phosphorous 3.3 mg/dL (2.7-4.5); Potassium 3.6 mEq/L (3.5-5.1); Sodium 141 mEq/L (136-145); eGFR For African Americans > 60 (> 60); eGFR For Non-African Americans > 60 (> 60)
[2020-08-06] MEDS: Saline Nasal Spray 44 ML BOTTLE NS SCH ×6 (04:19→19:32)
[2020-08-06] MEDS: *HR* LORazepam 2 MG/ML VIAL IVP SCH ×3 (05:26→18:04)
[2020-08-06] MEDS: Multivit/Ca/Min/Fe/FA 1 TAB TABLET PO SCH (09:52)
[2020-08-06] MEDS: FLUoxetine 20 MG CAPSULE PO SCH (09:52)
[2020-08-06] MEDS: Pantoprazole 40 MG VIAL IVP SCH (09:52)
[2020-08-06] MEDS: QUEtiapine Fumarate 100 MG TABLET PO SCH ×3 (09:52→19:31)
[2020-08-06] MEDS: Heparin 25,000UNIT/250ML 1/2NS 25,000 UNIT/250 ML IV.SOLN IVC SCH (10:01)
[2020-08-06] MEDS: Artificial Tears SOLN 15 ML BOTTLE BOTH EYES SCH ×2 (10:43→19:32)
[2020-08-06] MEDS: Desitin (Zinc Oxide) 56 GM TUBE TP SCH (10:43)
[2020-08-06] MEDS: 0.9 % Sodium Chloride 1,000 ML IVC SCH ×2 (10:45→22:17)
[2020-08-06] MEDS: Haloperidol Lactate 5 MG/ML VIAL IM SCH ×2 (11:00→19:32)
[2020-08-06] MEDS: *HR* Heparin 5,000 UNIT/ML VIAL IVP PRN (18:08)
[2020-08-07] MEDS: Saline Nasal Spray 44 ML BOTTLE NS SCH ×6 (00:50→19:28)
[2020-08-07] MEDS: Desitin (Zinc Oxide) 56 GM TUBE TP SCH ×3 (00:50→20:08)
[2020-08-07] MEDS: *HR* LORazepam 2 MG/ML VIAL IVP SCH ×3 (00:50→11:21)
[2020-08-07 00:54] LABS: Basophils % 0.4 %; Eosinophils # 0.1 K/mcL (0.0-0.6); Eosinophils % 1.5 %; Hematocrit 40.8 % (37.5-50.1); Hemoglobin 13.7 g/dL (12.9-16.9); Immature Granulocytes % 0.8 % (0-4); Lymphocytes # 2.7 K/mcL (0.6-4.6); Lymphocytes % 34.5 %; Mean Corpuscular HGB Conc 33.6 g/dL (31.6-35.5); Mean Corpuscular Hemoglobin 29.6 pg (28.0-33.3); Mean Corpuscular Volume 88.1 fL (83.0-100.0); Mean Platelet Volume 11.5 fL (9.4-12.4); Monocytes # 0.7 K/mcL (0.0-1.3); Neutrophils # 4.3 K/mcL (1.6-8.9); Platelet Count 243 K/mcL (140-400); Red Blood Count 4.63 M/mcL (4.19-5.50); Red Cell Distribution Width 13.3 % (11.5-14.5); Segmented Neutrophils % 53.8 %; White Blood Count 7.9 K/mcL (4.3-11.1)
[2020-08-07 01:13] LABS: BUN/Creatinine Ratio 8 (6-26); Blood Urea Nitrogen 6 mg/dL (6-20); Carbon Dioxide 20 mEq/L (23-29); Chloride 110 mEq/L (98-107); Glucose 92 mg/dL (70-105); Magnesium 1.6 mg/dL (1.6-2.6); Osmolality,Calculated 283 (280-300); Phosphorous 3.2 mg/dL (2.7-4.5); Sodium 138 mEq/L (136-145); eGFR For African Americans > 60 (> 60); eGFR For Non-African Americans > 60 (> 60)
[2020-08-07] MEDS: 0.9 % Sodium Chloride 1,000 ML IVC SCH ×2 (05:04→09:38)
[2020-08-07] MEDS: Heparin 25,000UNIT/250ML 1/2NS 25,000 UNIT/250 ML IV.SOLN IVC SCH (05:05)
[2020-08-07] MEDS: Artificial Tears SOLN 15 ML BOTTLE BOTH EYES SCH ×2 (07:52→19:28)
[2020-08-07] MEDS: Pantoprazole 40 MG VIAL IVP SCH (08:08)
[2020-08-07] MEDS: Multivit/Ca/Min/Fe/FA 1 TAB TABLET PO SCH (08:08)
[2020-08-07] MEDS: FLUoxetine 20 MG CAPSULE PO SCH (08:08)
[2020-08-07] MEDS: QUEtiapine Fumarate 100 MG TABLET PO SCH ×3 (08:08→20:01)
[2020-08-07] MEDS: Haloperidol Lactate 5 MG/ML VIAL IM SCH (08:09)
[2020-08-07] MEDS ORDERED: *HR* LORazepam 2 MG/ML VIAL IVP ONE (10:45)
[2020-08-07] MEDS ORDERED: *HR* LORazepam 2 MG/ML VIAL ONE ×2 (10:45→10:53)
[2020-08-07] MEDS ORDERED: *HR* LORazepam 2 MG/ML VIAL IM STA (10:52)
[2020-08-07] MEDS: Haloperidol Lactate 5 MG/ML VIAL IM PRN (11:00)
[2020-08-07] MEDS: Apixaban 5 MG TABLET PO SCH ×2 (12:21→20:01)
[2020-08-07] MEDS ORDERED: Potassium Chloride Elixir 20 MEQ/15 ML UDC PO ONE (15:51)
[2020-08-07] MEDS: *HR* LORazepam 1 MG TABLET PO SCH (17:10)
[2020-08-07] MEDS: levETIRAcetam 500 MG/5 ML UDC PO SCH (17:10)
[2020-08-07] MEDS: haloperidoL 5 MG TABLET PO SCH (20:01)
[2020-08-08] MEDS: Saline Nasal Spray 44 ML BOTTLE NS SCH ×3 (00:45→08:22)
[2020-08-08] MEDS: *HR* LORazepam 1 MG TABLET PO SCH ×2 (03:17→06:00)
[2020-08-08 05:41] VITALS: BP 147/97
[2020-08-08] MEDS: levETIRAcetam 500 MG/5 ML UDC PO SCH (06:00)
[2020-08-08] MEDS: FLUoxetine 20 MG CAPSULE PO SCH (08:09)
[2020-08-08] MEDS: Multivit/Ca/Min/Fe/FA 1 TAB TABLET PO SCH (08:09)
[2020-08-08] MEDS: QUEtiapine Fumarate 100 MG TABLET PO SCH (08:09)
[2020-08-08] MEDS: Apixaban 5 MG TABLET PO SCH (08:09)
[2020-08-08] MEDS: haloperidoL 5 MG TABLET PO SCH (08:09)
[2020-08-08] MEDS: Artificial Tears SOLN 15 ML BOTTLE BOTH EYES SCH (08:22)
[2020-08-08] MEDS: Desitin (Zinc Oxide) 56 GM TUBE TP SCH (08:22)
[2020-08-08 08:56] LABS: Basophils % 0.4 %; Eosinophils # 0.1 K/mcL (0.0-0.6); Eosinophils % 1.6 %; Hematocrit 39.3 % (37.5-50.1); Hemoglobin 12.7 g/dL (12.9-16.9); Immature Granulocytes % 0.9 % (0-4); Lymphocytes # 1.7 K/mcL (0.6-4.6); Lymphocytes % 24.5 %; Mean Corpuscular HGB Conc 32.3 g/dL (31.6-35.5); Mean Corpuscular Hemoglobin 28.9 pg (28.0-33.3); Mean Corpuscular Volume 89.3 fL (83.0-100.0); Mean Platelet Volume 11.8 fL (9.4-12.4); Monocytes # 0.8 K/mcL (0.0-1.3); Monocytes % 11.4 %; Neutrophils # 4.2 K/mcL (1.6-8.9); Platelet Count 218 K/mcL (140-400); Red Cell Distribution Width 13.4 % (11.5-14.5); Segmented Neutrophils % 61.2 %; White Blood Count 6.9 K/mcL (4.3-11.1)
[2020-08-08] MEDS ORDERED: amLODIPine 5 MG TABLET PO SCH (09:00)
[2020-08-08 09:16] LABS: BUN/Creatinine Ratio 9 (6-26); Blood Urea Nitrogen 7 mg/dL (6-20); Calcium 9.2 mg/dL (8.6-10.3); Carbon Dioxide 25 mEq/L (23-29); Chloride 108 mEq/L (98-107); Glucose 98 mg/dL (70-105); Magnesium 1.7 mg/dL (1.6-2.6); Osmolality,Calculated 288 (280-300); Phosphorous 3.5 mg/dL (2.7-4.5); Potassium 3.2 mEq/L (3.5-5.1); Sodium 140 mEq/L (136-145); eGFR For African Americans > 60 (> 60); eGFR For Non-African Americans > 60 (> 60)
== END 2020-08-08 10:47 | DRG 885 ==
LOC: EMEROOARM 22:36 → 3NENU 22:36 → SUATTDRO 07-28 04:49 → 3NENU 07-28 05:30 → 2NNU 07-28 23:26 → SUATTDRO 07-30 18:27
PROVIDERS: ADMIT Family Medicine; ATTEND Student in an Organized Health Care Education/Training Program